=== PATIENT | female | born 1940 | race Caucasian/White ===

== ENCOUNTER 2017-11-25 11:30 | Outpatient (CLI) | payer MEDICARE, OTHER ==
--- NOTE | 2017-11-26 10:52 | Mammography Report ---
Reason: SCREENING MAMMO Procedure Date: 11/25/2017 Accession Number: [id number] / [id number] Procedure: MGN - Screening Mammo Dig Bilat CPT Code: FULL RESULT: EXAM: Screening Mammo Dig Bilat DATE: 11/25/2017 11:56 AM CLINICAL HISTORY: Routine screening TECHNIQUE: Bilateral CC and MLO views were obtained. COMPARISON: 06/08/2014, 11/01/2009, 11/18/2007 FINDINGS: There is extensive fatty replacement of the breast tissue. No significant interval change. No suspicious masses, clustered microcalcifications, or regions of architectural distortion are identified. IMPRESSION: Negative examination RECOMMENDATION: Routine annual screening unless otherwise clinically indicated. BIRADS CATEGORY 1: Negative STANDARD QUALIFYING STATEMENTS: 1. This examination was reviewed with the aid of Computer-Aided Detection (CAD). 2. A negative or benign imaging report should not delay biopsy if clinically suspicious findings are present. Consider surgical consultation if warrented. More than 5% of cancers are not identified by imaging. 3. Dense breasts may obscure an underlying neoplasm.
== END 2017-11-25 11:31 | disposition home or self-care (01) ==
LOC: DI.N 11:30
PROVIDERS: ATTEND Family Medicine
DX: Z12.31 Encounter for screening mammogram for malignant neoplasm of breast (principal)
CPT/HCPCS: 77067

== ENCOUNTER 2018-01-17 09:21 | Outpatient (CLI) | payer MEDICARE, OTHER ==
[2018-01-17] MEDS ORDERED: IOVERSOL 320 50 ML VIAL ONE (09:29)
--- NOTE | 2018-01-17 11:25 | CT Report ---
Reason: ABD PAIN Procedure Date: 01/17/2018 Accession Number: [id number] / [id number] Procedure: CT - Abdomen/Pelvis W/O CPT Code: FULL RESULT: EXAM: CT ABDOMEN AND PELVIS EXAM DATE: 01/17/2018 09:58 AM. CLINICAL HISTORY: Abdominal pain. COMPARISONS: None. TECHNIQUE: Routine helical CT imaging was performed through the abdomen and pelvis. IV contrast: None. Enteric contrast: No. Reconstructions: Coronal and sagittal. In accordance with CT protocol optimization, one or more of the following dose reduction techniques were utilized for this exam: automated exposure control, adjustment of mA and/or KV based on patient size, or use of iterative reconstructive technique. FINDINGS: Lung Bases: Unremarkable. Liver: Normal. No masses. Gallbladder/Bile Ducts: Status post cholecystectomy. Spleen: Normal. Pancreas: Partial fatty replacement. Adrenal Glands: Normal. Kidneys: Normal. No masses or hydronephrosis. Peritoneal Cavity/Bowel: The patient is status post Nicole-en-Y gastric bypass. No free fluid, free air or adenopathy. No masses or acute inflammatory process. The appendix is well visualized and normal. Pelvic Organs: The uterus appears enlarged, incompletely evaluated in the noncontrast CT. Vasculature: No aneurysms or other significant abnormality. Bones: No significant abnormality. Other: None. IMPRESSION: Enlarged uterus, greater than expected in the postmenopausal state. If clinically indicated, further evaluation by transvaginal and transabdominal pelvic ultrasound. RADIA
[2018-01-17] MEDS ORDERED: IOVERSOL 320 50 ML VIAL PO ONE (17:17)
== END 2018-01-17 09:22 | disposition home or self-care (01) ==
LOC: DI 09:21
PROVIDERS: ATTEND Physician Assistant
DX: N85.2 Hypertrophy of uterus (principal)
CPT/HCPCS: 74176

== ENCOUNTER 2018-01-21 10:31 | Emergency (ER) | payer MEDICARE, OTHER ==
--- NOTE | 2018-01-21 12:51 | ED Physician Documentation ---
PD HPI DYSPNEA - Stated complaint Stated Complaint: PELVIC PX - Chief complaint Chief Complaint: Abd Pain - History obtained from History obtained from: Patient PD PAST MEDICAL HISTORY - Allergies Allergies/Adverse Reactions: Allergies Allergy/AdvReac Type Severity Reaction Status Date / Time erythromycin base Allergy Emesis Verified 01/21/18 10:47 Penicillins Allergy Hives Verified 01/21/18 10:46 Tetracyclines Allergy Emesis Verified 01/21/18 10:47 Results - Vitals Vitals: Vital Signs - 24 hr 01/21/18 10:43 Temperature 36.0 C L Heart Rate 88 Respiratory 16 Rate Blood Pressure 145/101 H O2 Saturation 98 Oxygen O2 Source Room air
--- NOTE | 2018-01-21 12:52 | ED Physician Documentation ---
PD HPI ABD PAIN - Stated complaint Stated Complaint: PELVIC PX - Chief complaint Chief Complaint: Abd Pain - History obtained from History obtained from: Patient - History of Present Illness Timing - onset: How many weeks ago (2-3 weeks of lower abd pain. Seen last week and CT showing uterine mass. U/S suggested and is in referral. Having increased pelvic pain, some dysuria, some constipation. No vomiting nor fever. No vaginal bleeding.) Timing - duration: Weeks Timing - details: Gradual onset, Still present, Waxing and waning Quality: Cramping, Aching, Pain. No: Sharp, Fullness/distended Location: Suprapubic, LLQ Radiation: Lower back Improved by: No: Eating Worsened by: No: Eating Associated symptoms: Nausea, Constipation, Dysuria, Loss of appetite. No: Fever, Vomiting, Diarrhea, Melena, Hematochezia, Vaginal bleeding, Vaginal dc Similar symptoms before: Has not had sx before Recently seen: Emergency Dept Review of Systems Constitutional: denies: Fever, Chills, Myalgias Nose: denies: Rhinorrhea / runny nose, Congestion Throat: denies: Sore throat Respiratory: denies: Cough GI: reports: Abdominal Pain, Nausea, Constipation. denies: Vomiting, Diarrhea : reports: Dysuria. denies: Frequency, Discharge Skin: denies: Rash PD PAST MEDICAL HISTORY - Past Medical History Cardiovascular: None Respiratory: None MODEL BUILDER DISPLAY: None - Present Medications Home Medications: Ambulatory Orders Medication Instructions Recorded Confirmed Ciprofloxacin HCl [Cipro] 250 mg PO BID #14 tablet 01/21/18 Docusate Sodium 100 mg PO DAILY #30 capsule 01/21/18 Naproxen 375 mg PO BID #20 tablet 01/21/18 Tramadol HCl 50 mg PO Q6H PRN #15 tablet 01/21/18 - Allergies Allergies/Adverse Reactions: Allergies Allergy/AdvReac Type Severity Reaction Status Date / Time erythromycin base Allergy Emesis Verified 01/21/18 10:47 Penicillins Allergy Hives Verified 01/21/18 10:46 Tetracyclines Allergy Emesis Verified 01/21/18 10:47 PD ED PE NORMAL - Vitals Vital signs reviewed: Yes - General General: Alert and oriented X 3, Well developed/nourished - HEENT HEENT: Pharynx benign - Neck Neck: Supple, no meningeal sign, No adenopathy - Cardiac Cardiac: RRR, No murmur - Respiratory Respiratory: Clear bilaterally - Abdomen Abdomen: Normal bowel sounds, Soft, Non distended, No organomegaly, Other (some tender without guarding in suprapubic and LLQ area. ) - Female Female : Deferred - Rectal Rectal: Deferred - Back Back: No CVA TTP - Derm Derm: Normal color, Warm and dry - Extremities Extremities: No deformity, No tenderness to palpate, Normal ROM s pain, No edema, No calf tenderness / cord - Neuro Neuro: Alert and oriented X 3, No motor deficit, Normal speech Results - Vitals Vitals: Oxygen O2 Source Room air - Labs Labs: Microbiology 01/21/18 12:50 Urine Culture - Preliminary Urine,Clean Catch Escherichia Coli Laboratory Tests 01/21/18 01/21/18 01/21/18 12:50 12:55 12:55 WBC 7.9 RBC 5.68 H Hgb 16.0 Hct 47.5 H MCV 83.7 MCH 28.1 MCHC 33.6 RDW 15.5 H Plt Count 183 MPV 10.7 Neut # (Auto) 5.6 Lymph # (Auto) 1.5 Reagan # (Auto) 0.6 Eos # (Auto) 0.1 Baso # (Auto) 0.1 Absolute Nucleated RBC 0.01 Nucleated RBC % 0.1 Sodium 138 Potassium 4.4 Chloride 101 Carbon Dioxide 30 Anion Gap 7.0 BUN 17 Creatinine 0.8 Estimated GFR (MDRD) 69 L Glucose 122 H Calcium 9.3 Total Bilirubin 0.9 AST 20 ALT 13 Alkaline Phosphatase 111 Total Protein 7.9 Albumin 4.2 Globulin 3.7 Albumin/Globulin Ratio 1.1 Lipase 21 L Urine Color YELLOW Urine Clarity SL. CLOUDY Urine pH 5.5 Ur Specific [place] >=1.030 H Urine Protein 30 H Urine Glucose (UA) NEGATIVE Urine Ketones 15 H Urine Occult Blood LARGE H Urine Nitrite POSITIVE H Urine Bilirubin NEGATIVE Urine Urobilinogen 0.2 (NORMAL) Ur Leukocyte Esterase SMALL H Urine RBC 11-25 H Urine WBC >25 H Ur Squamous Epith Cells FEW Squamous Urine Bacteria Few Urine Mucus Few Strands Ur Microscopic Review INDICATED Urine Culture Comments INDICATED - Rads (name of study) pelvic U/S Radiology: Prelim report reviewed (large fibroid in uterus. No free fluid. ), See rad report PD MEDICAL DECISION MAKING - ED course Complexity details: reviewed old records (recent CT scan abd/pelvis showing uterine mass, with suggestion for U/S. ), reviewed results (U/S showing large fibroid. NO free fluid. This may be giving her pain due to the size. However does have UTI as well, so some symptoms from there. Has referral to Dr. Valera. ), considered differential, d/w patient Departure - Departure Disposition: 01 Home, Self Care Clinical Impression: Abdominal pain Qualifiers: Abdominal location: lower abdomen, unspecified Qualified Code(s): R10.30 - Lower abdominal pain, unspecified UTI (urinary tract infection) Qualifiers: Urinary tract infection type: acute cystitis Hematuria presence: without hematuria Qualified Code(s): N30.00 - Acute cystitis without hematuria Uterine fibroid Qualifiers: Uterine leiomyoma location: unspecified location Qualified Code(s): D25.9 - Leiomyoma of uterus, unspecified Condition: Stable Record reviewed to determine appropriate education?: Yes Instructions: ED Fibroids, ED UTI Cystitis Female Follow-Up: Roberto Aragon MD [Primary Care Provider] - [facility] [Provider Group] Prescriptions: Ciprofloxacin HCl [Cipro] 250 mg PO BID #14 tablet Docusate Sodium 100 mg PO DAILY #30 capsule Naproxen 375 mg PO BID #20 tablet Tramadol HCl 50 mg PO Q6H PRN #15 tablet PRN Reason: Pain Comments: The ultrasound report says that the mass of the uterus looks like a fibroid. It is still reasonable size of 7 x 9 cm so could be causing some pain just from the stretching of it. We can treat with some anti-inflammatories of naproxen twice daily with food. Take docusate stool softener daily to try to really prevent constipation. Add tramadol if needed for pains. You do have a urinary tract infection as well and will treat with Cipro twice daily for a week based on your allergies to other medicines. Follow-up with gynecology office at their earliest appointment. Discharge Date/Time: 01/21/18 16:11
[2018-01-21 12:56] LABS: GLUCOSE, URINE (UA) NEGATIVE (NEGATIVE); KETONES,URINE (UA) 15 mg/dL (NEGATIVE); LEUKOCYTE ESTERASE, URINE SMALL (NEGATIVE); NITRITE,URINE POSITIVE (NEGATIVE); OCCULT BLOOD,URINE LARGE (NEGATIVE); PH,URINE 5.5 PH (5.0-7.5); PROTEIN,URINE 30 mg/dL (NEGATIVE); UROBILINOGEN,URINE 0.2 (NORMAL) E.U./dL (NORMAL)
[2018-01-21 13:13] LABS: BILIRUBIN,URINE NEGATIVE (NEGATIVE); CLARITY,URINE SL. CLOUDY (CLEAR); ICTOTEST,URINE NEGATIVE
[2018-01-21 13:14] LABS: BACTERIA,URINE Few /HPF (None Seen); SQUAMOUS EPITHELIAL CELL,UR FEW Squamous (<= Few)
[2018-01-21 13:15] LABS: MUCUS,URINE Few Strands
[2018-01-21 13:17] LABS: BASOPHILS # (AUTO) 0.1 10^3/uL (0.0-0.1); BASOPHILS % (AUTO) 0.8 %; EOSINOPHILS # (AUTO) 0.1 10^3/uL (0.0-0.7); EOSINOPHILS % (AUTO) 1.4 %; LYMPHOCYTES # (AUTO) 1.5 10^3/uL (1.5-3.5); LYMPHOCYTES % (AUTO) 18.9 %; MEAN CORPUSCULAR HEMOGLOBIN 28.1 pg (27.0-31.0); MEAN CORPUSCULAR HGB CONC 33.6 g/dL (32.0-36.0); MEAN CORPUSCULAR VOLUME 83.7 fL (81.0-99.0); MEAN PLATELET VOLUME 10.7 fL (7.9-10.8); MONOCYTES # (AUTO) 0.6 10^3/uL (0.0-1.0); MONOCYTES % (AUTO) 7.7 %; NEUTROPHILS # (AUTO) 5.6 10^3/uL (1.5-6.6); NEUTROPHILS % (AUTO) 71.2 %; PLT - PLATELET COUNT 183 10^3/uL (130-450); RED BLOOD COUNT 5.68 10^6/uL (4.20-5.40); RED CELL DISTRIBUTION WIDTH 15.5 % (12.0-15.0); WHITE BLOOD COUNT 7.9 x10^3/uL (4.8-10.8)
[2018-01-21 13:20] LABS: ALBUMIN 4.2 g/dL (3.2-5.5); ALBUMIN/GLOBULIN RATIO 1.1 (1.0-2.2); BILIRUBIN,TOTAL 0.9 mg/dL (0.2-1.0); CALCIUM 9.3 mg/dL (8.5-10.3); CREATININE 0.8 mg/dL (0.4-1.0); TOTAL PROTEIN 7.9 g/dL (6.7-8.2)
[2018-01-21] MEDS ORDERED: SULFAMETH/TRIMETH DS 800/160 MG TABLET PO STA (13:23)
[2018-01-21] MEDS ORDERED: DOCUSATE SODIUM 100 MG CAPSULE PO STA (13:23)
[2018-01-21] MEDS ORDERED: NAPROXEN 250 MG TABLET PO STA (13:23)
--- NOTE | 2018-01-21 15:02 | Ultrasound Report ---
Reason: enlarged uterus on recent CT Procedure Date: 01/21/2018 Accession Number: [id number] / [id number] Procedure: US - Pelvic w/Transvaginal CPT Code: FULL RESULT: EXAM: PELVIC ULTRASOUND EXAM DATE: 01/21/2018 02:20 PM. CLINICAL HISTORY: Enlarged uterus on recent CT. COMPARISON: None. TECHNIQUE: Realtime transabdominal pelvic scan performed to identify the uterus and adnexa and as an overview of other pelvic structures, followed by transvaginal scan to provide greater detail of the uterus and adnexa, with static image documentation. FINDINGS: Uterus: 9.1 x 6.9 x 8.9 cm, volume 29 cc. Retroverted position. Heterogeneous parenchyma with a dominant mass as described below. Masses: There is a 7.1 x 5.7 x 9.1 cm posterior fundal mass, possibly fibroids. Endometrium: The endometrium is not seen likely due to mass effect. Cervix: Unremarkable. Right Ovary: 1.8 x 2.6 x 2.2 cm, volume 5.4 cc. Normal echotexture and blood flow. Left Ovary: 3.0 x 1.6 x 1.5 cm, volume 3.8 cc. Normal echotexture and blood flow. Free Fluid: None. Other: None. IMPRESSION: Dominant uterine mass as described, possibly a fibroid. RADIA
[2018-01-21 15:31] VITALS: BP 131/77
== END 2018-01-21 16:11 | disposition home or self-care (01) ==
LOC: ED 10:31
DX: R10.32 Left lower quadrant pain (principal); N30.00 Acute cystitis without hematuria; D25.9 Leiomyoma of uterus, unspecified
CPT/HCPCS: 36415; 76830; 76856; 80053; 81001; 83690; 85025; 87086; 87181; 99283; A9270; 81003

== ENCOUNTER 2018-02-01 08:34 | Outpatient (CLI) | payer MEDICARE, OTHER | END 2018-02-01 08:35 | disposition home or self-care (01) | LOC: LAB 08:34 | PROVIDERS: ATTEND Obstetrics & Gynecology | DX: D25.9 Leiomyoma of uterus, unspecified (principal); R01.1 Cardiac murmur, unspecified; R01.2 Other cardiac sounds | CPT/HCPCS: 93005 ==

== ENCOUNTER 2018-02-18 08:00 | Outpatient (CLI) | payer MEDICARE, OTHER | END 2018-02-18 23:59 | disposition home or self-care (01) | LOC: LAB.R 08:00 | PROVIDERS: ATTEND Obstetrics & Gynecology | DX: N76.2 Acute vulvitis (principal) | CPT/HCPCS: 87480; 87510; 87660 ==

== ENCOUNTER 2018-02-19 12:35 | Outpatient (CLI) | payer MEDICARE, OTHER | END 2018-02-19 12:36 | disposition home or self-care (01) | LOC: DI 12:35 | PROVIDERS: ATTEND Obstetrics & Gynecology | DX: R01.1 Cardiac murmur, unspecified (principal); I27.20 Pulmonary hypertension, unspecified; I51.7 Cardiomegaly | CPT/HCPCS: 93306 ==

== ENCOUNTER 2018-03-14 08:35 | Outpatient (CLI) | payer MEDICARE, OTHER ==
[2018-03-14 09:13] LABS: BASOPHILS # (AUTO) 0.1 10^3/uL (0.0-0.1); BASOPHILS % (AUTO) 1.2 %; EOSINOPHILS # (AUTO) 0.3 10^3/uL (0.0-0.7); EOSINOPHILS % (AUTO) 3.9 %; HGB - HEMOGLOBIN 13.3 g/dL (12.0-16.0); LYMPHOCYTES # (AUTO) 1.4 10^3/uL (1.5-3.5); LYMPHOCYTES % (AUTO) 21.2 %; MEAN CORPUSCULAR HEMOGLOBIN 27.7 pg (27.0-31.0); MEAN CORPUSCULAR HGB CONC 33.1 g/dL (32.0-36.0); MEAN CORPUSCULAR VOLUME 83.7 fL (81.0-99.0); MEAN PLATELET VOLUME 9.8 fL (7.9-10.8); MONOCYTES # (AUTO) 0.6 10^3/uL (0.0-1.0); MONOCYTES % (AUTO) 9.4 %; NEUTROPHILS # (AUTO) 4.3 10^3/uL (1.5-6.6); NEUTROPHILS % (AUTO) 64.3 %; PLT - PLATELET COUNT 161 10^3/uL (130-450); RED BLOOD COUNT 4.81 10^6/uL (4.20-5.40); RED CELL DISTRIBUTION WIDTH 16.4 % (12.0-15.0); WHITE BLOOD COUNT 6.7 x10^3/uL (4.8-10.8)
[2018-03-14 09:21] LABS: ALBUMIN 3.5 g/dL (3.2-5.5); BILIRUBIN,TOTAL 1.1 mg/dL (0.2-1.0); CALCIUM 8.7 mg/dL (8.5-10.3); CREATININE 0.7 mg/dL (0.4-1.0); TOTAL PROTEIN 6.9 g/dL (6.7-8.2)
== END 2018-03-14 08:36 | disposition home or self-care (01) ==
LOC: LAB 08:35
PROVIDERS: ATTEND Obstetrics & Gynecology
DX: Z01.812 Encounter for preprocedural laboratory examination (principal); D25.9 Leiomyoma of uterus, unspecified
CPT/HCPCS: 36415; 80053; 85025

== ENCOUNTER 2018-03-19 08:52 | Day surgery (SDC) | payer MEDICARE, OTHER ==
[2018-03-19] MEDS ORDERED: LACTATED RINGERS 1,000 ML IV ONE (09:13)
--- NOTE | 2018-03-19 10:11 | ANESTHESIA ---
Pre-Anesthesia VS, & Labs - Diagnosis uterine fibroids - Procedure hysteroscopy, myosure ablation, D& C Vital Signs: Temp Pulse Resp BP Pulse Ox 36.5 C 64 12 152/66 H 97 03/19/18 09:14 03/19/18 09:14 03/19/18 09:14 03/19/18 09:14 03/19/18 09:14 Height 5 ft 4 in Weight (kg) 99.5 kg Body Mass Index 37.5 - NPO >8 hours - Is Patient ?: Not Applicable Home Medications and Allergies Allergies/Adverse Reactions: Allergies Allergy/AdvReac Type Severity Reaction Status Date / Time erythromycin base Allergy Emesis Verified 01/21/18 10:47 Penicillins Allergy Hives Verified 01/21/18 10:46 Tetracyclines Allergy Emesis Verified 01/21/18 10:47 Anes History & Medical History - Anesthetic History Anesthesia Complications: reports: No previous complications, Slow wake-up - Medical History Cardiovascular: reports: Hypertension, Murmur, Other Pulmonary: reports: Shortness of breath, Sleep apnea (resolved with wt loss), Other Gastrointestinal: reports: Other Urinary: reports: None Neuro: reports: None Musculoskeletal: reports: Osteoarthritis, Chronic back pain Endocrine/Autoimmune: reports: None Blood Disorders: reports: None Skin: reports: Psoriasis Smoking Status: Former smoker - Surgical History General: Cholecystectomy, Gastric surgery, Colonoscopy Eyes Ears Nose Throat (EENT): Cataracts Orthopedic: Arthroscopic surgery Results - EKG Results EKG Comparison: Reviewed EKG (left bundle branch block) - Echo Results Echo Results: Report reviewed (preserved LV function, EF 65-70, mild MR, moderate pylmonary HTN) Exam General: Alert Dental: WNL Mouth Openin Fingerbreadth Mallampati classification: II Thyromental Distance: greater than 6 cm Respiratory: Lungs clear Cardiovascular: Regular rate, Normal S1, Normal S2, Other (3/4 systolic murmur) Plan Anesthesia Type: General Consent for Procedure(s) Verified and Reviewed: Yes Code Status: Attempt Resuscitation ASA classification: 2-Mild systemic disease Is this case an emergency?: No
[2018-03-19] MEDS ORDERED: ceFAZolin 2 GM/50 ML 2 GM/50 ML BAG IV ONE (11:25)
[2018-03-19] MEDS ORDERED: fentaNYL 100 MCG/2 ML VIAL IVP ONE (11:40)
[2018-03-19] MEDS ORDERED: KETOROLAC 30 MG/ML VIAL IVP ONE (11:40)
[2018-03-19] MEDS ORDERED: DEXAMETHASONE 4 MG/ML VIAL IVP ONE (11:40)
[2018-03-19] MEDS ORDERED: MIDAZOLAM 2 MG/2 ML VIAL IVP ONE (11:40)
[2018-03-19] MEDS ORDERED: LIDOCAINE-MPF 2% 5 ML VIAL IM ONE (11:40)
[2018-03-19] MEDS ORDERED: ONDANSETRON 4 MG/2 ML VIAL IVP ONE (11:40)
[2018-03-19] MEDS ORDERED: PROPOFOL 200 MG/20 ML VIAL IVP ONE (11:40)
[2018-03-19] MEDS ORDERED: LORazepam 2 MG/ML VIAL IVP PRN (13:16)
[2018-03-19] MEDS ORDERED: HYDROcod/ACETAM 10 MG/325 MG TABLET PO PRN (13:16)
[2018-03-19] MEDS ORDERED: ONDANSETRON 4 MG/2 ML VIAL IVP PRN (13:16)
[2018-03-19] MEDS ORDERED: oxyCODONE 5 MG TABLET PO PRN (13:16)
[2018-03-19] MEDS ORDERED: HYDROmorphone 0.5 MG/0.5 ML SYRINGE IVP PRN (13:16)
--- NOTE | 2018-03-19 13:22 | OPERATIVE REPORT ---
Operative Report - General Procedure Date: 03/19/18 Planned Procedure: hysterscopy with myosure Pre-Op Diagnosis: Post menopausel bleeding Procedure Performed: hysterscopy with myosure Post Op Diagnosis: same - Procedure Note Primary Surgeon: Angel Moreno MD Anesthesia Provider: Renetta Vazquez CRNA Anesthesia Technique: General LMA Pathology: Endonetrial currettings IV Fluids (mL): 900 Estimated Blood Loss (mL): 100 Complications: None Fluid deficit 670 ml - Other Other Information/Narrative: [id number]
[2018-03-19] MEDS ORDERED: fentaNYL 100 MCG/2 ML VIAL ONE (13:23)
[2018-03-19 14:24] VITALS: BP 123/90
--- NOTE | 2018-03-19 15:49 | OPERATIVE REPORT ---
DATE OF SERVICE: 03/19/2018 Physician: Angel Moreno MD PREOPERATIVE DIAGNOSES 1. Submucosal fibroid. 2. Postmenopausal bleeding. POSTOPERATIVE DIAGNOSES 1. Submucosal fibroid. 2. Postmenopausal bleeding. PROCEDURE: Hysteroscopy with MyoSure. SURGEON: Angel Moreno MD ANESTHESIA: General via LMA with Angela Vazquez CRNA IV FLUIDS: 900 mL. ESTIMATED BLOOD LOSS: 100 mL. MYOSURE DEFICIT: 640 mL of lactated Ringer's. FINDINGS: Upon entering the pelvic cavity, the uterus appeared to be high. It was small. The uteru s was sounded to roughly 10 cm. Upon entering the hysteroscope, there was evidence of what appeared to be a fibroid as well as very fluffy endometrial tissue. The MyoSure was used to resect as much of this as possible. Because of her heart condition, we decided to cease at a deficit of 700 mL to dec rease the risk of fluid overload. DESCRIPTION OF PROCEDURE: Following adequate general anesthesia via LMA, patient was placed in dorsa l lithotomy position in [facility]. At this point, she was prepped and draped in the usual fashi on. A timeout was performed in which the patient was identified as well as concerns addressed. A sp eculum was placed in the vagina. The cervix was visualized, grasped with a single-tooth tenaculum po steriorly. The cervix was then identified and then utilizing dilators was brought up to 6 mm. Uteru s was sounded to 10 cm. There was difficulty passing the hysteroscope, so at this point, the cervix was dilated up to 7 mm. The hysteroscope was passed without difficulty. The endometrial cavity was full of a lot of fluffy tissue, and it was very difficult to see a lot of anatomy. There appeared to be a fibroid. The MyoSure was then used to resect as much of the fluffy tissue as possible, as well as to try and resect the fibroid. When the deficit of 750 was reached, the procedure was terminated . The balance following ceasing eventually came to 670 mL. The procedure was stopped. The cervix w as released from the single-tooth tenaculum. Patient tolerated the procedure well and was taken to [facility] in stable condition. Sponge and needle counts were correct. TD: 03/19/2018 13:37
== END 2018-03-19 08:53 | disposition home or self-care (01) ==
LOC: SDS 08:52
PROVIDERS: ATTEND Obstetrics & Gynecology
PROC: 0UDB8ZX Extraction of Endometrium, Via Natural or Artificial Opening Endoscopic, Diagnostic (ICD-10-PCS; principal; 2018-03-19 10:30)
DX: C54.1 Malignant neoplasm of endometrium (principal); R01.1 Cardiac murmur, unspecified; I10 Essential (primary) hypertension; Z87.891 Personal history of nicotine dependence; I44.7 Left bundle-branch block, unspecified; I27.20 Pulmonary hypertension, unspecified
CPT/HCPCS: 58558; 88305; 88341; 88342; 88360; J0690; J7120

== ENCOUNTER 2018-04-14 13:55 | Outpatient (CLI) | payer MEDICARE, OTHER ==
[2018-04-14] MEDS ORDERED: IOVERSOL 320 100 ML VIAL IVP ONE ×2 (14:24→14:47)
[2018-04-14 14:25] LABS: CREATININE 0.8 mg/dL (0.4-1.0)
--- NOTE | 2018-04-14 15:24 | CT Report ---
Reason: ENDOMETRIAL CANCER, [id number] Procedure Date: 04/14/2018 Accession Number: [id number] / [id number] Procedure: CT - CHEST W CPT Code: FULL RESULT: EXAM: CT CHEST EXAM DATE: 04/14/2018 02:46 PM. CLINICAL HISTORY: Endometrial cancer. COMPARISONS: None. TECHNIQUE: Routine helical CT imaging was performed through the chest. IV contrast: None. Reconstructions: Coronal and sagittal. In accordance with CT protocol optimization, one or more of the following dose reduction techniques were utilized for this exam: automated exposure control, adjustment of mA and/or KV based on patient size, or use of iterative reconstructive technique. FINDINGS: Lungs/Pleura: 3.5 mm nodule in the left upper lobe image 19 series 4, 2 mm nodule left upper lobe image 23, 3 mm nodule left lower lobe image 30, 3 mm nodule right upper lobe image 15, 3.5 mm nodule left upper lobe image 15. No bronchial thickening, consolidation, or edema. Pulmonary vasculature is normal. No pericardial or pleural effusion. No pneumothorax. Mediastinum: Main pulmonary artery is enlarged, 3.2 cm. No mediastinal or hilar lymphadenopathy. Coronary calcifications are noted. Bones: Unremarkable. Visualized Abdomen: Status post cholecystectomy and partial gastrectomy. Other: None. IMPRESSION: A few pulmonary nodules measuring up to 3.5 mm as described. RADIA
== END 2018-04-14 13:56 | disposition home or self-care (01) ==
LOC: LAB 13:55 → DI 13:56
PROVIDERS: ATTEND Obstetrics & Gynecology
DX: C54.1 Malignant neoplasm of endometrium (principal); R91.8 Other nonspecific abnormal finding of lung field
CPT/HCPCS: 36415; 71260; 82565; 84520; Q9967

== ENCOUNTER 2018-07-22 09:02 | Outpatient (CLI) | payer MEDICARE, OTHER ==
[2018-07-22 14:41] LABS: ALBUMIN 3.5 g/dL (3.2-5.5); ALBUMIN/GLOBULIN RATIO 1.1 (1.0-2.2); BILIRUBIN,TOTAL 0.8 mg/dL (0.2-1.0); CALCIUM 8.8 mg/dL (8.5-10.3); CREATININE 0.6 mg/dL (0.4-1.0); TOTAL PROTEIN 6.8 g/dL (6.7-8.2)
[2018-07-22 14:48] LABS: BASOPHILS % (AUTO) 1.3 %; HGB - HEMOGLOBIN 11.6 g/dL (12.0-16.0); LYMPHOCYTES # (AUTO) 1.5 10^3/uL (1.5-3.5); LYMPHOCYTES % (AUTO) 41.3 %; MEAN CORPUSCULAR HGB CONC 33.4 g/dL (32.0-36.0); MEAN CORPUSCULAR VOLUME 80.7 fL (81.0-99.0); MEAN PLATELET VOLUME 9.4 fL (7.9-10.8); MONOCYTES # (AUTO) 0.6 10^3/uL (0.0-1.0); MONOCYTES % (AUTO) 16.6 %; NEUTROPHILS # (AUTO) 1.4 10^3/uL (1.5-6.6); NEUTROPHILS % (AUTO) 39.8 %; PLT - PLATELET COUNT 154 10^3/uL (130-450); RED BLOOD COUNT 4.28 10^6/uL (4.20-5.40); RED CELL DISTRIBUTION WIDTH 20.4 % (12.0-15.0); WHITE BLOOD COUNT 3.6 x10^3/uL (4.8-10.8)
[2018-07-22 15:14] LABS: PLATELET ESTIMATE, MANUAL NORMAL (130-450,000) (NORMAL); PLATELET MORPHOLOGY RARE GIANT PLATELETS (NORMAL)
== END 2018-07-22 09:03 | disposition home or self-care (01) ==
LOC: LAB.WCP 09:02
PROVIDERS: ATTEND Family Medicine
DX: C54.1 Malignant neoplasm of endometrium (principal)
CPT/HCPCS: 36415; 80053; 80061; 83721; 84443; 85025

== ENCOUNTER 2018-07-28 09:15 | Outpatient (CLI) | payer MEDICARE, OTHER ==
[2018-07-28 09:32] LABS: EOSINOPHILS # (AUTO) 0.1 10^3/uL (0.0-0.7); EOSINOPHILS % (AUTO) 2.3 %; LYMPHOCYTES # (AUTO) 1.1 10^3/uL (1.5-3.5); LYMPHOCYTES % (AUTO) 24.3 %; MEAN CORPUSCULAR HEMOGLOBIN 27.1 pg (27.0-31.0); MEAN CORPUSCULAR HGB CONC 33.1 g/dL (32.0-36.0); MONOCYTES # (AUTO) 0.2 10^3/uL (0.0-1.0); MONOCYTES % (AUTO) 3.4 %; NEUTROPHILS # (AUTO) 3.2 10^3/uL (1.5-6.6); PLT - PLATELET COUNT 95 10^3/uL (130-450); RED BLOOD COUNT 4.43 10^6/uL (4.20-5.40); RED CELL DISTRIBUTION WIDTH 22.3 % (12.0-15.0); WHITE BLOOD COUNT 4.7 x10^3/uL (4.8-10.8)
[2018-07-28 10:18] LABS: PLATELET ESTIMATE, MANUAL DECREASED (<130,000) (NORMAL); PLATELET MORPHOLOGY NORMAL APPEARANCE (NORMAL)
== END 2018-07-28 09:16 | disposition home or self-care (01) ==
LOC: LAB 09:15
PROVIDERS: ATTEND Internal Medicine Medical Oncology
DX: C55 Malignant neoplasm of uterus, part unspecified (principal)
CPT/HCPCS: 36415; 85025

== ENCOUNTER 2018-08-05 11:45 | Outpatient (CLI) | payer MEDICARE, OTHER ==
[2018-08-05 12:14] LABS: BASOPHILS % (AUTO) 0.9 %; EOSINOPHILS % (AUTO) 3.4 %; HGB - HEMOGLOBIN 10.8 g/dL (12.0-16.0); LYMPHOCYTES % (AUTO) 35.1 %; MEAN CORPUSCULAR HEMOGLOBIN 26.7 pg (27.0-31.0); MEAN CORPUSCULAR HGB CONC 31.6 g/dL (32.0-36.0); MEAN CORPUSCULAR VOLUME 84.7 fL (81.0-99.0); MEAN PLATELET VOLUME 11.6 fL (7.9-10.8); MONOCYTES % (AUTO) 4.1 %; NEUTROPHILS % (AUTO) 56.2 %; PLT - PLATELET COUNT 100 10^3/uL (130-450); RED BLOOD COUNT 4.04 10^6/uL (4.20-5.40); RED CELL DISTRIBUTION WIDTH 18.9 % (12.0-15.0); WHITE BLOOD COUNT 3.2 x10^3/uL (4.8-10.8)
[2018-08-05 12:47] LABS: ABNORMAL LYMPHS % (MANUAL) 0 %
[2018-08-05 12:52] LABS: BAND NEUTROPHILS % (MANUAL) 2 %; EOSINOPHILS # (MANUAL) 0.1 10^3/uL (0-0.7); LYMPHOCYTES # (MANUAL) 1.2 10^3/uL (1.5-3.5); LYMPHOCYTES % (MANUAL) 32 %; NEUTROPHILS # (MANUAL) 1.9 10^3/uL (1.5-6.6); NEUTROPHILS % (MANUAL) 58 %
[2018-08-05 12:53] LABS: PLATELET ESTIMATE, MANUAL DECREASED (<130,000) (NORMAL)
[2018-08-05 12:54] LABS: PLATELET MORPHOLOGY RARE GIANT PLATELETS (NORMAL)
[2018-08-05 12:56] LABS: DIFFERENTIAL COMMENT MANUAL DIFFERENTIAL
== END 2018-08-05 11:46 | disposition home or self-care (01) ==
LOC: LAB 11:45
PROVIDERS: ATTEND Internal Medicine Medical Oncology
DX: C55 Malignant neoplasm of uterus, part unspecified (principal)
CPT/HCPCS: 36415; 85025

== ENCOUNTER 2018-08-19 11:08 | Outpatient (CLI) | payer MEDICARE, OTHER ==
[2018-08-19 11:40] LABS: BASOPHILS % (AUTO) 0.6 %; EOSINOPHILS % (AUTO) 0.2 %; HGB - HEMOGLOBIN 9.9 g/dL (12.0-16.0); LYMPHOCYTES % (AUTO) 18.5 %; MEAN CORPUSCULAR HEMOGLOBIN 28.4 pg (27.0-31.0); MEAN CORPUSCULAR VOLUME 86.2 fL (81.0-99.0); MEAN PLATELET VOLUME 11.3 fL (7.9-10.8); MONOCYTES % (AUTO) 11.4 %; NEUTROPHILS % (AUTO) 67.6 %; PLT - PLATELET COUNT 153 10^3/uL (130-450); RED BLOOD COUNT 3.48 10^6/uL (4.20-5.40); RED CELL DISTRIBUTION WIDTH 21.2 % (12.0-15.0); WHITE BLOOD COUNT 4.8 x10^3/uL (4.8-10.8)
[2018-08-19 11:45] LABS: ABNORMAL LYMPHS % (MANUAL) 0 %
[2018-08-19 12:08] LABS: BAND NEUTROPHILS % (MANUAL) 3 %; LYMPHOCYTES # (MANUAL) 0.9 10^3/uL (1.5-3.5); LYMPHOCYTES % (MANUAL) 19 %; MONOCYTES # (MANUAL) 0.4 10^3/uL (0.0-1.0); NEUTROPHILS # (MANUAL) 3.5 10^3/uL (1.5-6.6); NEUTROPHILS % (MANUAL) 70 %
[2018-08-19 12:09] LABS: DIFFERENTIAL COMMENT MANUAL DIFFERENTIAL; PLATELET ESTIMATE, MANUAL NORMAL (130-450,000) (NORMAL); PLATELET MORPHOLOGY NORMAL APPEARANCE (NORMAL); RBC MORPHOLOGY (MULTIPLE) 1+ HYPOCHROMASIA (NORMAL)
== END 2018-08-19 11:09 | disposition home or self-care (01) ==
LOC: LAB 11:08
PROVIDERS: ATTEND Internal Medicine Medical Oncology
DX: C55 Malignant neoplasm of uterus, part unspecified (principal)
CPT/HCPCS: 36415; 80053; 85025

== ENCOUNTER 2018-08-20 10:33 | Outpatient (CLI) | payer MEDICARE, OTHER ==
[2018-08-20 11:20] LABS: ALBUMIN 3.4 g/dL (3.2-5.5); ALBUMIN/GLOBULIN RATIO 0.9 (1.0-2.2); BILIRUBIN,TOTAL 1.6 mg/dL (0.2-1.0); CREATININE 0.9 mg/dL (0.4-1.0); TOTAL PROTEIN 7.4 g/dL (6.7-8.2)
== END 2018-08-20 10:34 | disposition home or self-care (01) ==
LOC: LAB 10:33
PROVIDERS: ATTEND Internal Medicine Medical Oncology
DX: C55 Malignant neoplasm of uterus, part unspecified (principal)
CPT/HCPCS: 80053

== ENCOUNTER 2018-08-26 11:59 | Outpatient (CLI) | payer MEDICARE, OTHER ==
[2018-08-26 12:35] LABS: BASOPHILS % (AUTO) 0.9 %; EOSINOPHILS % (AUTO) 0.3 %; HGB - HEMOGLOBIN 9.1 g/dL (12.0-16.0); LYMPHOCYTES # (AUTO) 0.7 10^3/uL (1.5-3.5); LYMPHOCYTES % (AUTO) 20.9 %; MEAN CORPUSCULAR HEMOGLOBIN 27.7 pg (27.0-31.0); MEAN CORPUSCULAR HGB CONC 31.4 g/dL (32.0-36.0); MEAN CORPUSCULAR VOLUME 88.1 fL (81.0-99.0); MEAN PLATELET VOLUME 11.4 fL (7.9-10.8); MONOCYTES # (AUTO) 0.2 10^3/uL (0.0-1.0); MONOCYTES % (AUTO) 4.3 %; NEUTROPHILS # (AUTO) 2.6 10^3/uL (1.5-6.6); NEUTROPHILS % (AUTO) 72.7 %; PLT - PLATELET COUNT 158 10^3/uL (130-450); RED BLOOD COUNT 3.29 10^6/uL (4.20-5.40); RED CELL DISTRIBUTION WIDTH 20.9 % (12.0-15.0); WHITE BLOOD COUNT 3.5 x10^3/uL (4.8-10.8)
[2018-08-26 12:45] LABS: ALBUMIN 3.6 g/dL (3.2-5.5); ALBUMIN/GLOBULIN RATIO 0.9 (1.0-2.2); BILIRUBIN,TOTAL 1.1 mg/dL (0.2-1.0); CALCIUM 9.1 mg/dL (8.5-10.3); CREATININE 0.8 mg/dL (0.4-1.0); TOTAL PROTEIN 7.5 g/dL (6.7-8.2)
[2018-08-26 12:50] LABS: % IRON SATURATION 47 % (20-50); IRON 108 ug/dL (28-170); TOTAL IRON BINDING CAPACITY 231 ug/dL (250-450); TRANSFERRIN 165 mg/dL (192-382)
[2018-08-26 13:25] LABS: THYROID STIMULATING HORMONE 1.86 uIU/mL (0.34-5.60)
== END 2018-08-26 12:00 | disposition home or self-care (01) ==
LOC: LAB 11:59
PROVIDERS: ATTEND Nurse Practitioner
DX: C54.1 Malignant neoplasm of endometrium (principal); C55 Malignant neoplasm of uterus, part unspecified
CPT/HCPCS: 36415; 80053; 82607; 82728; 83540; 84443; 84466; 85025

== ENCOUNTER 2018-09-01 09:27 | Outpatient (CLI) | payer MEDICARE, OTHER ==
[2018-09-01 10:10] LABS: BASOPHILS % (AUTO) 0.5 %; EOSINOPHILS % (AUTO) 0.5 %; HGB - HEMOGLOBIN 8.6 g/dL (12.0-16.0); LYMPHOCYTES % (AUTO) 34.7 %; MEAN CORPUSCULAR HEMOGLOBIN 27.8 pg (27.0-31.0); MEAN CORPUSCULAR HGB CONC 31.2 g/dL (32.0-36.0); MEAN CORPUSCULAR VOLUME 89.3 fL (81.0-99.0); MEAN PLATELET VOLUME 11.8 fL (7.9-10.8); NEUTROPHILS % (AUTO) 58.3 %; PLT - PLATELET COUNT 186 10^3/uL (130-450); RED BLOOD COUNT 3.09 10^6/uL (4.20-5.40); RED CELL DISTRIBUTION WIDTH 20.4 % (12.0-15.0)
[2018-09-01 10:28] LABS: ABNORMAL LYMPHS % (MANUAL) 0 %
[2018-09-01 11:24] LABS: BAND NEUTROPHILS % (MANUAL) 4 %; LYMPHOCYTES # (MANUAL) 0.6 10^3/uL (1.5-3.5); LYMPHOCYTES % (MANUAL) 32 %; MONOCYTES # (MANUAL) 0.1 10^3/uL (0.0-1.0)
[2018-09-01 11:28] LABS: DIFFERENTIAL COMMENT MANUAL DIFFERENTIAL; PLATELET ESTIMATE, MANUAL NORMAL (130-450,000) (NORMAL); PLATELET MORPHOLOGY NORMAL APPEARANCE (NORMAL)
== END 2018-09-01 09:28 | disposition home or self-care (01) ==
LOC: LAB 09:27
PROVIDERS: ATTEND Family Medicine
DX: C55 Malignant neoplasm of uterus, part unspecified (principal)
CPT/HCPCS: 36415; 85025

== ENCOUNTER 2018-09-06 10:36 | Outpatient (CLI) | payer MEDICARE, OTHER ==
--- NOTE | 2018-09-06 18:48 | HISTORY & PHYSICAL EXAMINATION ---
Chief Complaint - Chief Complaint Chief Complaint: Weakness and urinary frequency/burning History of Present Illness - Admitted From Admitted From:: Home - History Obtained From Records Reviewed: Yes History obtained from: Patient and her neice Millie who is at bedside - History of Present Illness HPI Comment/Other: Ms. 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 Her last chemotherapy was given on 08/28/18. Over this past week she has become progresively weaker, febrile, decreased PO intake, and urinary burning and frequency with very little, dark colored urine. On Saturday she became so weak that she moved into her sister's home so she could get help with ADLs. Other PMH reported in chronic back & joint pains (bilat knees) and a heart murmur found at time of cancer diagnosis. History - Past Medical History Cardiovascular: reports: Hypertension, Atrial fibrillation (New onset this admission), Murmur, Other Respiratory: reports: Shortness of breath, Sleep apnea (resolved with wt loss), Other Neuro: reports: None Endocrine/Autoimmune: reports: None, Type 2 diabetes (diet controlled since weight loss ) GI: reports: Chronic constipation, Other RADIOGRAPHIC TECHNOLOGIST: reports: None : reports: None HEENT: reports: Other (cataracts-bilat) Psych: reports: Claustrophobia Musculoskeletal: reports: Osteoarthritis, Chronic back pain Derm: reports: Psoriasis MRSA Hx?: No - Past Surgical History General: reports: Cholecystectomy, Gastric surgery (bypass), Colonoscopy Ortho: reports: Arthroscopic surgery /RADIOGRAPHIC TECHNOLOGIST: reports: Dilation and currettage, Hysterectomy HEENT: reports: Cataracts - Family & Social History Family History: Sister: Alive and Well (hx of sarcoma), Brother: (2 brothers . 1 of suicide. 1 of bladder ca) Living arrangement: At home Living Situation: Alone Social History Notes: She has recently (Saturday), temporarily moved in with her twin sister and brother and law on [facility]. Typically lives alone with her dog. - Substance History Use: Uses substance without health or social issues: NONE, Tobacco (previous use. quit in 1984.) Tobacco Details: Cigarettes - POLST Patient has POLST: No Meds/Allgy - Home Medications Home Medications: Ambulatory Orders Medication Instructions Recorded Confirmed Naproxen 375 mg PO BID #20 tablet 01/21/18 03/19/18 Tramadol HCl 50 mg PO Q6H PRN #15 tablet 01/21/18 03/19/18 - Allergies Allergies/Adverse Reactions: Allergies Allergy/AdvReac Type Severity Reaction Status Date / Time erythromycin base Allergy Emesis Verified 01/21/18 10:47 Penicillins Allergy Hives Verified 01/21/18 10:46 Tetracyclines Allergy Emesis Verified 01/21/18 10:47 Review of Systems - Constitutional Constitutional: reports: Fatigue, Fever, Malaise, Weakness, Poor appetite, Weight loss (weight has dropped ~60lb weight loss in 6 months) - Eyes Eyes: reports: Other (burning, dry eyes) - Ears, Nose & Throat Ears, Nose & Throat: reports: Other (dental implants; dysgusia) - Cardiovascular Cariovascular: reports: Edema ( 1-2+ BLE), Lightheadedness, Exertional dyspnea, Decr. exercise tolerance, Other (told she has a murmur by her PCP around the time of CA cliveois) - Respiratory Respiratory: reports: SOB with exertion. denies: Cough, Hemoptysis - Gastrointestinal Gastrointestinal: reports: Constipation, Poor appetite. denies: Rectal bleeding, Black stools, Bloody stools, Nausea, Vomiting, Arnulfo blood emesis, Coffee grounds emesis - Genitourinary Genitourinary: reports: Dysuria, Frequency, Urgency. denies: Hematuria, Flank pain - Musculoskeletal Musculoskeletal: reports: Muscle pain, Back pain, Muscle aches, Muscle weakness, Joint pain (bilat knees) - Integumentary Integumentary: reports: Rash (notes new rash to buttucks), Other (alopecia) - Neurological Neurological: reports: General weakness, Dizziness, Numbness (peripheral neuropathy with numb/tingling to bilat feet up to mid shins, and bilat hands in fingertips) - Psychiatric Psychiatric: reports: Depression, Anxiety. denies: Suicidal, Hallucinations - Endocrine Endocrine: reports: Intolerance to cold - Hematologic/Lymphatic Hematologic/Lymphatic: reports: Anemia, Bruising, Petechiae, Lymphadenopathy. denies: Recurrent infections - All Other Systems All Other Systems: reports: Reviewed and negative Prior Level of Functionality: Has ambulated with a cane for years, recently started using a 4WW. Lives alone with her dog. Recently became unable to perform ADLs [place] Exam - Vital Signs Reviewed Vital Signs: Yes - Physical Exam General Appearance: positive: No acute distress, Alert, Other (Very pale, appears fatigued, obese woman) Eyes Bilateral: positive: PERRL, EOMI, No lid inflammation, Other (mild scleral jaundice) ENT: positive: Dry mucous membranes Neck: positive: Nml inspection, Thyroid nml, No JVD, Trachea midline, Stiff neck Respiratory: positive: Chest non-tender, No respiratory distress, Breath sounds nml Cardiovascular: positive: Tachycardia, Systolic murmur Peripheral Pulses: positive: 1+ Abdomen: positive: Non-tender, Nml bowel sounds, No distention. negative: Tenderness, Guarding, Rebound Back: positive: Nml inspection. negative: CVA tenderness (R), CVA tenderness (L) Skin: positive: Pallor, Other (Pale, cool,). negative: Warm Extremities: positive: Non-tender, Nml appearance, Pedal edema (LE edema up to knees 1-2+), Joint swelling. negative: Calf tenderness, Natalee's sign/cords Neurologic/Psychiatric: positive: Oriented x3, CN's nml (2-12), Motor nml, Mood/affect nml, Weakness, Sensory loss (numbness bilat LE feet up to mid may). negative: Sensation nml Conclusion/Plan - Problem List (1) Anemia Conclusion/Plan: Hemoglobin 7.1 Hematocrit 22. Patient is 8 days post most recent chemotherapy infusion. Plan: -Type and screen -2u RBCs ordered -Premed with benadryl and tylenol Patient and family member have been educated on risks and benefits of blood transfusion, and patient is understanding and agreeable Qualifiers: Anemia type: unspecified type Qualified Code(s): D64.9 - Anemia, unspecified (2) Atrial fibrillation with rapid ventricular response Conclusion/Plan: New onset with HR in 110s. Previous EKG in medical record shows abnormal p waves, but no afib. Plan: -Monitor on telemetry overnight -Given risk factors, will order a CTa to rule out PE (PERC criteria indicates low risk, though there is concern given her active cancer) -Order TSH to rule out hyperthryoid -Trend troponins (initial troponin on admission <0.04) (3) UTI (urinary tract infection) Conclusion/Plan: UA+ for blood, nitrates, leuks, RBC, WBC and bacteria Received 750mg levofloxacin in ED Plan: -Will continue PO Levofloxacin 750mg daily starting tomorrow -Can order pyridium PRN for dysuria Qualifiers: Urinary tract infection type: site unspecified Hematuria presence: without hematuria Qualified Code(s): N39.0 - Urinary tract infection, site not specified (4) DANIAL (acute kidney injury) Conclusion/Plan: Baseline Cr 1.0, mildly up to 1.2 Plan: -Rehydrate with NS, stop fluids when PRBCs arrive as to not fluid overload (5) Orthostatic dizziness Conclusion/Plan: Unable to get up OOB even with assistance due to weakness and dizziness. Has now received 2L fluids in ED. Plan: -Check orthostatics on arrival to floor -Continue IV hydration per above - Lab Results Lab results reviewed: Yes - Diagnostic Imaging Results Diagnostic Imaging Results: positive: See rad report Diagnostic Imaging Results Comments: CXR on admission with no acute findings. PAC with tip appropriately placed in SVC - EKG Results EKG Interpreted Independently: Yes EKG Comparison: Changed from prior EKG (Afib is new from previous EKG, but LBBB was on previous) EKG Findings: Atrial fibrillation with a HR and a LBBB Core Measures - Anticipated LOS I expect patient to be DC'd or transferred within 96 hours.: Yes - DVT/VTE - Prophylaxis VTE/DVT Device ordered at admit?: Yes VTE/DVT Prophylaxis med ordered at admit?: No Not Ordered - Medical Reason: Contraindicated
== END 2018-09-06 10:37 | disposition critical access hospital (66) ==
LOC: EMS 10:36
PROVIDERS: ATTEND Surgery
DX: R53.1 Weakness (principal); R39.9 Unspecified symptoms and signs involving the genitourinary system
CPT/HCPCS: A0425; A0427

== ENCOUNTER 2018-09-06 10:49 | Observation (INO) | payer MEDICARE, OTHER ==
--- NOTE | 2018-09-06 11:41 | ED Physician Documentation ---
History of Present Illness - Stated complaint Stated Complaint: WEAK - Chief complaint Chief Complaint: General - History obtained from History obtained from: Patient, Family - Additonal information Additional information: Patient is a 77-year-old female with history of metastatic uterine cancer status post hysterectomy and currently undergoing chemotherapy with last therapy on 08/29/2018 presenting with generalized weakness, decreased urination. Patient was supposed to receive additional chemotherapy 2 days ago, which was held as she was too dehydrated and instead received a liter and a half of normal saline. Patient denies fever, chest pain, shortness of breath, productive cough. Patient also denies abdominal pain and last bowel movement yesterday. Patient does have chronic leg swelling which is unchanged from baseline. Patient denies any complications with port. No other improving or worsening factors noted. Review of Systems Constitutional: denies: Fever Cardiac: denies: Chest pain / pressure, Palpitations Respiratory: denies: Dyspnea, Cough GI: denies: Abdominal Pain, Nausea, Vomiting, Diarrhea : reports: Dysuria, Unable to Void Neurologic: reports: Generalized weakness PD PAST MEDICAL HISTORY - Past Medical History Past Medical History: Yes Cardiovascular: Hypertension, Murmur, Other Respiratory: Shortness of breath, Sleep apnea (resolved with wt loss), Other Neuro: None Endocrine/Autoimmune: None GI: Other PRINCIPAL SECURITY ARCHITECT: None : None HEENT: Other Psych: Claustrophobia Musculoskeletal: Osteoarthritis, Chronic back pain Derm: Psoriasis - Past Surgical History Past Surgical History: Yes General: Cholecystectomy, Gastric surgery, Colonoscopy Ortho: Arthroscopic surgery /PRINCIPAL SECURITY ARCHITECT: Hysterectomy HEENT: Cataracts - Present Medications Home Medications: Ambulatory Orders Medication Instructions Recorded Confirmed Naproxen 375 mg PO BID #20 tablet 01/21/18 03/19/18 Tramadol HCl 50 mg PO Q6H PRN #15 tablet 01/21/18 03/19/18 - Allergies Allergies/Adverse Reactions: Allergies Allergy/AdvReac Type Severity Reaction Status Date / Time erythromycin base Allergy Emesis Verified 01/21/18 10:47 Penicillins Allergy Hives Verified 01/21/18 10:46 Tetracyclines Allergy Emesis Verified 01/21/18 10:47 - Social History Does the pt smoke?: No Smoking Status: Former smoker Does the pt drink ETOH?: No Does the pt have substance abuse?: No - Immunizations Immunizations are current?: Yes - POLST Patient has POLST: No PD ED PE NORMAL - Vitals Vital signs reviewed: Yes - General General: Alert and oriented X 3, No acute distress. No: Well developed/nourished (Frail, chronically ill-appearing) - HEENT HEENT: Atraumatic, Moist mucous membranes, Pharynx benign - Neck Neck: Supple, no meningeal sign - Cardiac Cardiac: RRR. No: No murmur (Faint holosystolic murmur (chronic)) - Respiratory Respiratory: No respiratory distress, Clear bilaterally - Abdomen Abdomen: Normal bowel sounds, Soft, Non tender, Non distended - Derm Derm: Normal color, Warm and dry, No rash, Other (Port in place over right chest, otherwise uncomplicated.) - Extremities Extremities: No deformity, No tenderness to palpate. No: No edema (Trace nonpitting pedal edema bilaterally (chronic)) - Neuro Neuro: Alert and oriented X 3, No motor deficit, No sensory deficit - Psych Psych: Normal mood, Normal affect Results - Vitals Vitals: Vital Signs - 24 hr 09/06/18 09/06/18 09/06/18 11:00 11:45 11:47 Temperature 37.1 C 36.0 C L Heart Rate 114 H 104 H 112 H Respiratory 20 14 17 Rate Blood Pressure 130/60 133/64 H 123/53 L O2 Saturation 98 97 97 09/06/18 09/06/18 09/06/18 12:37 12:56 15:00 Temperature Heart Rate 112 H 109 H 105 H Respiratory 25 H 17 21 Rate Blood Pressure 126/65 126/65 109/45 L O2 Saturation 99 95 100 09/06/18 16:25 Temperature Heart Rate 105 H Respiratory 17 Rate Blood Pressure 128/74 O2 Saturation 99 Oxygen O2 Source Room air - EKG (time done) 1204 Rate: Rate (enter#) (110) Rhythm: Atrial fibrillation Intervals: LBBB Compare to prior EKG: Other (Reviewed all the EKG which indicated left bundle branch block and additional strips on chart that also showed signs of atrial fibrillation) 1315 Rate: Rate (enter#) (106) Rhythm: Atrial fibrillation Intervals: LBBB - Labs Labs: Laboratory Tests 09/06/18 09/06/18 09/06/18 11:55 12:14 12:14 WBC 5.3 RBC 2.50 L Hgb 7.1 L Hct 22.2 L MCV 88.8 MCH 28.4 MCHC 32.0 RDW 20.4 H Plt Count 117 L MPV 11.8 H Neut # (Auto) 4.2 Lymph # (Auto) 0.4 L [place] # (Auto) 0.7 Eos # (Auto) 0.0 Baso # (Auto) 0.0 Absolute Nucleated RBC 0.00 Nucleated RBC % 0.0 PT 15.3 H INR 1.4 H APTT 20.2 L Sodium Potassium Chloride Carbon Dioxide Anion Gap BUN Creatinine Estimated GFR (MDRD) Glucose Lactic Acid Calcium Total Bilirubin AST ALT Alkaline Phosphatase Troponin I B-Natriuretic Peptide Total Protein Albumin Globulin Albumin/Globulin Ratio Lipase Urine Color YELLOW Urine Clarity CLOUDY Urine pH 6.0 Ur Specific [place] 1.015 Urine Protein 100 H Urine Glucose (UA) NEGATIVE Urine Ketones NEGATIVE Urine Occult Blood MODERATE H Urine Nitrite POSITIVE H Urine Bilirubin NEGATIVE Urine Urobilinogen 0.2 (NORMAL) Ur Leukocyte Esterase MODERATE H Urine RBC 6-10 H Urine WBC >25 H Urine WBC Clumps PRESENT Ur Squamous Epith Cells FEW Squamous Urine Bacteria Moderate H Urine Mucus Few Strands Ur Microscopic Review INDICATED Urine Culture Comments INDICATED 09/06/18 09/06/18 09/06/18 12:14 12:14 12:14 WBC RBC Hgb Hct MCV MCH MCHC RDW Plt Count MPV Neut # (Auto) Lymph # (Auto) [place] # (Auto) Eos # (Auto) Baso # (Auto) Absolute Nucleated RBC Nucleated RBC % PT INR APTT Sodium 132 L Potassium 4.2 Chloride 95 L Carbon Dioxide 26 Anion Gap 11.0 BUN 27 H Creatinine 1.2 H Estimated GFR (MDRD) 43 L Glucose 134 H Lactic Acid Calcium 8.2 L Total Bilirubin 1.5 H AST 18 ALT 12 Alkaline Phosphatase 77 Troponin I < 0.04 B-Natriuretic Peptide 208 H Total Protein 6.7 Albumin 2.4 L Globulin 4.3 H Albumin/Globulin Ratio 0.6 L Lipase 13 L Urine Color Urine Clarity Urine pH Ur Specific [place] Urine Protein Urine Glucose (UA) Urine Ketones Urine Occult Blood Urine Nitrite Urine Bilirubin Urine Urobilinogen Ur Leukocyte Esterase Urine RBC Urine WBC Urine WBC Clumps Ur Squamous Epith Cells Urine Bacteria Urine Mucus Ur Microscopic Review Urine Culture Comments 09/06/18 12:14 WBC RBC Hgb Hct MCV MCH MCHC RDW Plt Count MPV Neut # (Auto) Lymph # (Auto) [place] # (Auto) Eos # (Auto) Baso # (Auto) Absolute Nucleated RBC Nucleated RBC % PT INR APTT Sodium Potassium Chloride Carbon Dioxide Anion Gap BUN Creatinine Estimated GFR (MDRD) Glucose Lactic Acid 1.4 Calcium Total Bilirubin AST ALT Alkaline Phosphatase Troponin I B-Natriuretic Peptide Total Protein Albumin Globulin Albumin/Globulin Ratio Lipase Urine Color Urine Clarity Urine pH Ur Specific [place] Urine Protein Urine Glucose (UA) Urine Ketones Urine Occult Blood Urine Nitrite Urine Bilirubin Urine Urobilinogen Ur Leukocyte Esterase Urine RBC Urine WBC Urine WBC Clumps Ur Squamous Epith Cells Urine Bacteria Urine Mucus Ur Microscopic Review Urine Culture Comments PD MEDICAL DECISION MAKING - ED course Complexity details: reviewed old records, reviewed results, re-evaluated patient, considered differential, d/w patient, d/w family, d/w j2ee consultant ED course: Patient presenting with multiple complaints including generalized fatigue and urinary symptoms raising concerns for infection was specifically UTI given patient's immunocompromised status. Work-up did not find evidence of pneumonia, bacteremia, neutropenic fever. Patient is not currently exhibiting signs of sepsis or other hemodynamic instability. Urinalysis reflected infection and started on antibiotic regimen while continuing to provide fluid support. Additionally, EKG noted to have changes of atrial fibrillation with mild RVR and left bundle branch block and upon chart review, these changes appear to be chronic. Gave small dose of diltiazem which did decrease rate, although did not normalize completely. Cardiac markers within normal limits and do not have high suspicion for ACS, MT, unstable angina, aneurysm, dissection at this time. Patient's persistent slightly elevated rate could also be related to underlying infection. Other labs did return abnormal but are likely reflective of her chronic underlying disease processes including a decreased H&H. Upon chart review, patient's H&H has declined consistently for some time and after speaking with patient and family, oncology has already discussed possible blood transfusion with patient. At this time, patient does not want blood transfusion and is comfortable with discharge home on oral antibiotics. Spoke with on-call oncology who is also amenable to this plan. However, patient is unable to successfully sit up or ambulate on her own and is now not comfortable with the discharge plan. As patient will likely require hospitalization at this [facility], she now is amenable to blood transfusion and type and screen and blood ordered, specifically irradiated, given immunosuppression status. Spoke with hospitalist, who is agreeable to admission. Departure - Departure Disposition: ED Place in Observation Clinical Impression: Anemia Qualifiers: Anemia type: unspecified type Qualified Code(s): D64.9 - Anemia, unspecified Urinary tract infection Qualifiers: Urinary tract infection type: site unspecified Hematuria presence: without hematuria Qualified Code(s): N39.0 - Urinary tract infection, site not specified Condition: Fair
[2018-09-06] MEDS ORDERED: SODIUM CHLORIDE 0.9% 1,000 ML IV ONE (11:50)
[2018-09-06] MEDS ORDERED: diltiaZEM INJ 5 MG/ML VIAL IVP STA (12:13)
[2018-09-06 12:23] LABS: BASOPHILS % (AUTO) 0.4 %; HGB - HEMOGLOBIN 7.1 g/dL (12.0-16.0); LYMPHOCYTES # (AUTO) 0.4 10^3/uL (1.5-3.5); LYMPHOCYTES % (AUTO) 7.5 %; MEAN CORPUSCULAR HEMOGLOBIN 28.4 pg (27.0-31.0); MEAN CORPUSCULAR VOLUME 88.8 fL (81.0-99.0); MEAN PLATELET VOLUME 11.8 fL (7.9-10.8); MONOCYTES # (AUTO) 0.7 10^3/uL (0.0-1.0); MONOCYTES % (AUTO) 12.3 %; NEUTROPHILS # (AUTO) 4.2 10^3/uL (1.5-6.6); NEUTROPHILS % (AUTO) 78.3 %; PLT - PLATELET COUNT 117 10^3/uL (130-450); RED CELL DISTRIBUTION WIDTH 20.4 % (12.0-15.0); WHITE BLOOD COUNT 5.3 x10^3/uL (4.8-10.8)
[2018-09-06 12:27] LABS: INR 1.4 (0.8-1.2); PT - PROTHROMBIN TIME 15.3 secs (9.9-12.6)
[2018-09-06 12:34] LABS: PARTIAL THROMBOPLASTIN TIME 20.2 secs (24.9-33.3)
[2018-09-06 12:38] LABS: ALBUMIN 2.4 g/dL (3.2-5.5); ALBUMIN/GLOBULIN RATIO 0.6 (1.0-2.2); BILIRUBIN,TOTAL 1.5 mg/dL (0.2-1.0); CALCIUM 8.2 mg/dL (8.5-10.3); CREATININE 1.2 mg/dL (0.4-1.0); TOTAL PROTEIN 6.7 g/dL (6.7-8.2)
[2018-09-06 12:42] LABS: BILIRUBIN,URINE NEGATIVE (NEGATIVE); GLUCOSE, URINE (UA) NEGATIVE (NEGATIVE); KETONES,URINE (UA) NEGATIVE (NEGATIVE); LEUKOCYTE ESTERASE, URINE MODERATE (NEGATIVE); NITRITE,URINE POSITIVE (NEGATIVE); OCCULT BLOOD,URINE MODERATE (NEGATIVE); PROTEIN,URINE 100 mg/dL (NEGATIVE); UROBILINOGEN,URINE 0.2 (NORMAL) E.U./dL (NORMAL)
[2018-09-06 12:44] LABS: CLARITY,URINE CLOUDY (CLEAR)
[2018-09-06 12:56] LABS: BACTERIA,URINE Moderate /HPF (None Seen); MUCUS,URINE Few Strands; SQUAMOUS EPITHELIAL CELL,UR FEW Squamous (<= Few); WBC CLUMPS,URINE PRESENT
--- NOTE | 2018-09-06 13:02 | XRAY Report ---
Reason: cough Procedure Date: 09/06/2018 Accession Number: [id number] / [id number] Procedure: XR - Chest 2 View X-Ray CPT Code: 21681 FULL RESULT: EXAM: CHEST RADIOGRAPHY EXAM DATE: 09/06/2018 12:27 PM. CLINICAL HISTORY: History of ovarian cancer, cough. COMPARISON: CHEST 2 VIEW 03/18/2018 11:49 AM. TECHNIQUE: 2 views. FINDINGS: Lungs/Pleura: Lung volumes are somewhat diminished. No focal opacities, vascular congestion or edema evident. Mediastinum: Heart and mediastinal contours are unremarkable. Other: A Port-A-Cath is new overlying the right chest and terminates in the low SVC just above the cavoatrial junction. IMPRESSION: 1. No acute cardiopulmonary disease. 2. Low lung volumes as before. 3. New Port-A-Cath terminates in lower SVC. RADIA
[2018-09-06] MEDS ORDERED: levoFLOXacin 750 MG/150 ML 750 MG/150 ML BAG IV STA (13:08)
[2018-09-06] MEDS ORDERED: ZINC OXIDE 20% OINT 28.35 GM TUBE TOP STA (14:48)
[2018-09-06] MEDS ORDERED: ONDANSETRON ODT 4 MG TABLET TL PRN (17:30)
[2018-09-06] MEDS ORDERED: ONDANSETRON 4 MG/2 ML VIAL IVP PRN (17:30)
[2018-09-06] MEDS ORDERED: SODIUM CHLORIDE FLUSH 0.9% 10 ML SYRINGE IVP PRN (17:30)
[2018-09-06] MEDS ORDERED: oxyCODONE 5 MG TABLET PO PRN (17:30)
[2018-09-06] MEDS ORDERED: ACETAMINOPHEN 325 MG TABLET PO ONE (17:32)
[2018-09-06] MEDS ORDERED: traMADol 50 MG TABLET PO PRN (17:34)
[2018-09-06] MEDS ORDERED: SODIUM CHLORIDE 0.9% 1,000 ML IV SCH (18:00)
--- NOTE | 2018-09-06 18:23 | HISTORY & PHYSICAL EXAMINATION ---
Chief Complaint - Chief Complaint Chief Complaint: weakness, dizziness and dribbling urine History of Present Illness - Admitted From Admitted From:: Home/ER - History Obtained [facility] History obtained from: Patient, [employer] and ER MD Exam Limitations: none - History of Present Illness HPI Comment/Other: She is a anais 77-year-old female who presented with abdominal pain January 30. Diagnosed as gastritis. 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 IIIb 03/2018. 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 She has been having chemotherapy since April 2018 with carbo-taxol. Switched to Alb-bound paclitaxel bc of infusion reaction. No radiation therapy offered. Will need colonscopy down the road. Last chemotherapy August 29. She has been having increasing weakness, increasing fatigue and lightheadedness. Boaz like she had a fever. Denies cough, wheezing, hemoptysis. Chronic stable leg edema, no chest pain. But she is having dribbling, and decreased urine output and urgency. She was supposed to have chemotherapy September 04 but it was held because of dehydration. She is due to have it next week. She came to the emergency room with these complaints and has a temperature of 36. Pulse is consistently tachycardic at 104-114. Blood pressure is 130/60. She is 99% saturated on room air. She is a very pale, fatigued female with cold hands and feet. No respiratory distress. Evaluation by the emergency room to MD shows her to have an anemia of 7.1. Grams of hemoglobin. She has been gr adually decreasing her hemoglobin due to the chemotherapy. Transfusion was considered a week or so ago but she did not have enough symptoms to warrant transfusion at that time. She does not have an elevated white cell count. She is mildly hyponatremic, and has an elevated creatinine of 1.2. Lowest baseline is 0.6. Urinalysis has occult blood, nitrates, leukocyte Estrace, pyuria, and very few squamous cells. She is also has a UTI. She also has a new afib in the ER. History - Past Medical History Cardiovascular: reports: Hypertension, Murmur (Echo 02/2018 w mild conc LVH w EF 65%. LAE mild. Mild sclerotic AV. Mod pulm HTN PASP 51 mm Hg), Other (varicose veins and chronic leg edema) Respiratory: reports: Shortness of breath, Sleep apnea (resolved with wt loss), Other Neuro: reports: Peripheral neuropathy, Other (history of zoster) Endocrine/Autoimmune: reports: Type 2 diabetes (in the past before gastric surgery), Other (morbid obesity treated w gastric bypass 2004, 200 lb wt loss) GI: reports: Hepatitis (A age 20.), Other MARKETING AND OUTREACH COORDINATOR: reports: Uterine cancer (leiomyosarcoma since 04/2018), Other () : reports: None HEENT: reports: Other Psych: reports: Claustrophobia Musculoskeletal: reports: Osteoarthritis, Chronic back pain Derm: reports: Psoriasis MRSA Hx?: No - Past Surgical History General: reports: Cholecystectomy (1987), Gastric surgery, Colonoscopy Ortho: reports: Arthroscopic surgery (of her knees) /MARKETING AND OUTREACH COORDINATOR: reports: Hysterectomy HEENT: reports: Cataracts - Family & Social History Family History Comment/Other: Father age 73 of lung cancer, had alcoholism. mom age 87 of heart disease, high cholesterol. Of her siblings one brother of bladder cancer age 83, another brother committed suicide age 35, her twin sister has breast cancer and has high cholesterol, as well as sarcoma too. No children Living arrangement: At home Living Situation: With family Social History Notes: She is from the [facility] in the [facility]. She came to [facility] 10 years ago to be close to her sister and family. Although she was living in [place] at that time, she had no family on the [facility] and family convinced her to move here to [place]. Smoked for 35 years and quit 1984. No hx of alcohol abuse. No hx of recreational substance abuse. She just moved in with her sister and PARTHA last week for help. - POLST Patient has POLST: No POLST Status: Full Code Meds/Allgy - Home Medications Home Medications: Ambulatory Orders Medication Instructions Recorded Confirmed Naproxen 375 mg PO BID #20 tablet 01/21/18 03/19/18 Tramadol HCl 50 mg PO Q6H PRN #15 tablet 01/21/18 03/19/18 - Allergies Allergies/Adverse Reactions: Allergies Allergy/AdvReac Type Severity Reaction Status Date / Time erythromycin base Allergy Emesis Verified 01/21/18 10:47 Penicillins Allergy Hives Verified 01/21/18 10:46 Tetracyclines Allergy Emesis Verified 01/21/18 10:47 Review of Systems - Constitutional Constitutional: reports: Fatigue, Fever, Malaise, Weight loss - Eyes Eyes: reports: Blurred vision, Other (dry eyes w burning) - Ears, Nose & Throat Ears, Nose & Throat: reports: Other (bad tasting food) - Cardiovascular Cariovascular: reports: Palpitations (with exertion), Lightheadedness, Exertiona l dyspnea, Decr. exercise tolerance - Respiratory Respiratory: reports: SOB with exertion. denies: Cough, Sputum production, Wheezing, Hemoptysis, Orthopnea - Gastrointestinal Gastrointestinal: reports: Diarrhea, Nausea, Poor appetite. denies: Black stools, Bloody stools - Genitourinary Genitourinary: reports: Dysuria, Frequency, Urgency - Musculoskeletal Musculoskeletal: reports: Muscle pain, Muscle aches - Integumentary Integumentary: reports: Rash (on her buttocks from this week.) - Neurological Neurological: reports: General weakness, Dizziness, Numbness (hands and feet) - Psychiatric Psychiatric: reports: Anxiety. denies: Depression, Suicidal - Endocrine Endocrine: denies: Polyuria, Polydypsia, Polyphagia - Hematologic/Lymphatic Hematologic/Lymphatic: reports: Anemia, Bruising, Petechiae Prior Level of Functionality: she was able to cope with her chemo until this last few weeks. Can't live alone now so moved in w sister. Needs help to get food. Can still ambulate w cane and barely shower, but is exhausted. Exam - Vital Signs Reviewed Vital Signs: Yes Vital Signs: Vital Signs x48h Temp Pulse Resp BP Pulse Ox 09/06/18 17:40 105 H 18 126/57 L 98 09/06/18 16:25 105 H 17 128/74 99 09/06/18 15:00 105 H 21 109/45 L 100 09/06/18 12:56 109 H 17 126/65 95 09/06/18 12:37 112 H 25 H 126/65 99 09/06/18 11:47 112 H 17 123/53 L 97 09/06/18 11:45 36.0 C L 104 H 14 133/64 H 97 09/06/18 11:00 37.1 C 114 H 20 130/60 98 - Physical Exam General Appearance: positive: Alert, Mild distress, Other (pale, cold skin white female with sister at bedside) Eyes Bilateral: positive: PERRL, EOMI ENT: positive: Dry mucous membranes Neck: positive: No JVD. negative: Stiff neck, Carotid bruit Respiratory: positive: Chest non-tender. negative: Wheezes, Rales, Rhonchi Cardiovascular: positive: Irregularly irregular, Systolic murmur. negative: Gallop/S4, Friction rub Peripheral Pulses: positive: 0 Abdomen: positive: Non-tender, No organomegaly, Nml bowel sounds, No distention Skin: positive: Dry, Pallor, Other (cold) Extremities: positive: Non-tender, Pedal edema Neurologic/Psychiatric: positive: Oriented x3, CN's nml (2-12), Motor nml, Weakness Conclusion/Plan - Problem List (1) Orthostatic dizziness Conclusion/Plan: And fatigue. Most likely from severe anemia, dehydration. In her blood work hemoglobin is low since been at 7.1. She has acute kidney injury from her baseline creatinine. Plan: Observation admit Hydration and blood transfusion Repeat labs in the morning (2) Anemia associated with chemotherapy Conclusion/Plan: Ongoing since her first chemotherapy. Getting gradually worse. Recognize in her oncology office visit notes. Plan: 2 units of packed cells Premedicate Hemoglobin in the morning (3) UTI (urinary tract infection) Conclusion/Plan: Received IV antibiotics in the emergency room. Will get p.o. antibiotics in the morning in anticipation of discharge. Will adjust medication on the basis of her culture. Qualifiers: Urinary tract infection type: acute cystitis (4) Atrial fibrillation with rapid ventricular response Conclusion/Plan: Differential diagnosis includes hypothyroidism, myocardial ischemia, pulmonary embolism. A prechemotherapy echocardiogram showed only mild left atrial enlargement. Intact left ventricle. No significant valvular heart disease. Plan: Serial troponins Check TSH Check CT pulmonary angiogram (5) DANIAL (acute kidney injury) Conclusion/Plan: from dehydration. Hydrate and repeat labs in the morning. - Lab Results Lab results reviewed: Yes Fish Bones: 09/06/18 12:14 09/06/18 12:14 - EKG Results EKG Interpreted Independently: No EKG Comparison: No prior EKG Core Measures - Anticipated LOS I expect patient to be DC'd or transferred within 96 hours.: Yes - DVT/VTE - Prophylaxis VTE/DVT Device ordered at admit?: Yes
[2018-09-06] MEDS ORDERED: IOVERSOL 320 100 ML VIAL IVP ONE ×2 (19:45→20:17)
--- NOTE | 2018-09-06 20:54 | CT Report ---
Reason: new onset afib in pt w gyne cancer Procedure Date: 09/06/2018 Accession Number: [id number] / [id number] Procedure: CT - ANGIO CHEST W/WO CPT Code: FULL RESULT: EXAM: CT ANGIOGRAM CHEST. EXAM DATE: 09/06/2018 08:15 PM. CLINICAL HISTORY: New onset atrial fibrillation in patient with gynecologic cancer. COMPARISON: CHEST W/ 04/14/2018 2:41 PM. TECHNIQUE: Routine helical imaging was performed through the chest in the pulmonary arterial phase. IV Contrast: OPTI-320 80 mL. Reconstructions: Coronal 3-D MIP reconstructions.Sagittal and coronal. In accordance with CT protocol optimization, one or more of the following dose reduction techniques were utilized for this exam: automated exposure control, adjustment of mA and/or KV based on patient size, or use of iterative reconstructive technique. FINDINGS: Pulmonary Arteries: Diagnostic quality: Adequate through the segmental arteries. No evidence for acute or chronic pulmonary emboli. RV/LV is within normal limits. There is no interventricular septal bowing. There is no reflux of contrast material in the IVC. Lungs/Pleura: No acute airspace consolidation. Previously seen 2-3 mm nodular opacities are either stable or less conspicuous compared to the previous exam. There is slightly increased attenuation throughout the upper lobes. No pleural effusion or pneumothorax. Mediastinum: Normal. No cardiac enlargement or adenopathy. Thoracic Aorta: Unremarkable. Upper Abdomen: Status post gastric bypass. Other: None. IMPRESSION: 1. No pulmonary embolism. 2. Subtle, nonspecific bilateral upper lobe opacities may be secondary to mild fluid shift. 3. Previously seen 2-3 mm nodular opacities are stable or less conspicuous on reexamination. No new nodules. RADIA
[2018-09-06] MEDS: ACETAMINOPHEN 325 MG TABLET PO PRN (21:01)
[2018-09-06] MEDS ORDERED: SODIUM CHLORIDE 0.9% 500 ML ONE (22:27)
[2018-09-06] MEDS ORDERED: cefTRIAXone 1 GM in SODIUM CHLORIDE 0.9% MINIBAG 100 ML IV SCH (22:53)
[2018-09-07] MEDS: SODIUM CHLORIDE FLUSH 0.9% 10 ML SYRINGE IVP SCH ×3 (00:06→17:56)
[2018-09-07] MEDS: AZTREONAM 1 GM in SODIUM CHLORIDE 0.9% MINIBAG 100 ML IV SCH ×3 (00:06→21:34)
[2018-09-07 07:08] LABS: BASOPHILS % (AUTO) 0.7 %; HGB - HEMOGLOBIN 10.9 g/dL (12.0-16.0); LYMPHOCYTES # (AUTO) 0.6 10^3/uL (1.5-3.5); LYMPHOCYTES % (AUTO) 11.3 %; MEAN CORPUSCULAR HEMOGLOBIN 28.5 pg (27.0-31.0); MEAN CORPUSCULAR HGB CONC 33.5 g/dL (32.0-36.0); MEAN CORPUSCULAR VOLUME 85.1 fL (81.0-99.0); MEAN PLATELET VOLUME 12.1 fL (7.9-10.8); MONOCYTES # (AUTO) 0.6 10^3/uL (0.0-1.0); MONOCYTES % (AUTO) 11.1 %; NEUTROPHILS # (AUTO) 4.2 10^3/uL (1.5-6.6); NEUTROPHILS % (AUTO) 75.1 %; PLT - PLATELET COUNT 84 10^3/uL (130-450); RED BLOOD COUNT 3.82 10^6/uL (4.20-5.40); RED CELL DISTRIBUTION WIDTH 19.1 % (12.0-15.0); WHITE BLOOD COUNT 5.6 x10^3/uL (4.8-10.8)
[2018-09-07 07:36] LABS: PLATELET ESTIMATE, MANUAL DECREASED (<130,000) (NORMAL); PLATELET MORPHOLOGY 1+ LARGE PLATELETS (NORMAL)
--- NOTE | 2018-09-07 07:38 | Discharge Plan ---
Discharge Plan Problem Reviewed?: Yes Disposition: Home, Self Care Condition: Fair Prescriptions: Metoprolol Tartrate [Lopressor] 12.5 mg PO BID #30 tablet Sulfamethoxazole/Trimethoprim [Bactrim 400-80 mg Tablet] 1 each PO BID #10 tablet Diet: Regular Activity Restrictions: Activity as Tolerated Shower Restrictions: No Driving Restrictions: No Health Concerns: You came to our emergency room because of weakness and fatigue. 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 We found you to have 3 problems. One was anemia was 7.1 g of hemoglobin. The other one was a urinary tract infection. The anemia is from chemotherapy induced suppression of your bone marrow.Your anemia and probable dehydration caused your kidneys to have mild kidney insufficiency. A third problem was new onset atrial fibrillation. Since this irregular heart beat is associated with a venous blood clot to the lungs, we did an angiogram to the veins that go to your heart and lungs and you did not have a pulmonary embolus. Plan of Treatment: You received 2 units of packed red cells that were irradiated. You also were started on antibiotics for the urinary tract infection. When someone has atrial fibrillation, it can increase the risk of having a stroke. The usual protocol is to start a patient on medicines that slow down the heart rate as well as give blood thinners to reduce the risk of stroke. I spoke to the oncologist on-call for your group. They do not recommend blood thinners since you are getting chemotherapy and the chemotherapy already lowers your platelets. Platelets stop bleeding. So if you have low platelets and you take a blood thinner, your risk of bleeding is too high. Care Goals: Please follow-up with your oncologist. Make sure you stay hydrated with drinking at least a liter of water a day. Complete your antibiotic therapy. Have your primary care provider reviewed the culture results of the urinary tract infections. Because you are currently having chemotherapy, we did not want to give you blood thinners for the new onset atrial fibrillation. We have given you medicine to slow it down. Please discuss with your oncologist and your primary care provider. Have your primary care provider refer you to a [employer] [facility] in the [facility]. Assessment: Patient and sister understand the care plan and will follow through. No Smoking: If you smoke, Please STOP! Call for help. Follow-up with: JARAD LEZAMA MD [Primary Care Provider] -
[2018-09-07 08:43] LABS: CALCIUM 8.1 mg/dL (8.5-10.3); CREATININE 1.1 mg/dL (0.4-1.0)
[2018-09-07] MEDS ORDERED: levoFLOXacin 250 MG TABLET PO SCH (09:00)
[2018-09-07] MEDS: POLYETHYLENE GLYCOL 3350 17 GM PACKET PO SCH (09:15)
--- NOTE | 2018-09-07 09:16 | DISCHARGE SUMMARY ---
"<Jordan Florez - Last Filed: 09/08/18 08:07> Discharge Summary Admit Date: 09/06/18 Discharge Date: 09/08/18 Discharging Provider: Dr. Kitty Erickson MD Primary Care Provider: Dr. Minor Code Status: Attempt Resuscitation Condition at Discharge: Fair Discharge Disposition: 03 SNF DC/Xfer - DIAGNOSES Admission Diagnoses: (1) Orthostatic dizziness (2) Anemia associated with chemotherapy (3) UTI (urinary tract infection) (4) Atrial fibrillation with rapid ventricular response (5) DANIAL (acute kidney injury) Discharge Diagnoses with Status of Each Condition: (1) Orthostatic dizziness Likely in setting of severe dehydration and anemia. Rehydrated with ~4L NS total. Transfused 2u PRBCs. Orthostatic VS this am were stable from supine to sitting, but she in unable to stand, wouldn't attempt out of fear. (2) Anemia associated with chemotherapy Transfused 2u PRBCs. H&H stablized at 10.9 & 32.5. (3) UTI (urinary tract infection) Treated with 1 dose IV levoflaxacin in ED. Transitioned to IV aztreonam due to FQ resistance on previous cultures. Discharged with PO bactrim. (4) Atrial fibrillation with rapid ventricular response TSH 0.84. Troponins negative. CTa: negative for PE. So acute hyperthyroid, acute MN, and PE effectively ruled out. AM tele shows sinus tachycardia. Likely pt has a paroxysmal Afib, bradley. with pt report of occasional sensation of heart fluttering. Started low dose metoprolol for rate control. PCP to follow-up with this as outpt. (5) DANIAL (acute kidney injury) In setting of dehydration. Crea on admit 1.2, slightly improved to 1.1 today. - HPI History of Present Illness: Ms. 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 She has been having chemotherapy since April 2018 with carbo-t axol. Switched to Alb-bound paclitaxel due to infusion reaction. Last chemotherapy administered on August 29, was scheduled to received next dose earlier this week but it was held due to severe dehydration and she was given 1.5L fluids instead, and rescheduled for this coming week. She has been having increasing weakness, increasing fatigue and lightheadedness. [place] like she had a fever. Denies cough, wheezing, hemoptysis. Chronic stable leg edema, no chest pain. She is also having dribbling, dysuria, decreased urine output and urgency. She came to the emergency room with these complaints and had a temperature of 36, though reportedly had taken tylenol a few hours prior. Pulse is con sistently tachycardic at 104-114. Blood pressure is 130/60. She is 99% saturated on room air. She is a very pale, fatigued female with cold hands and feet. No respiratory distress. Labs on presentation to ED shows her to be anemic with a Hgb of 7.1, Hct of 22. This has been a steady decline since her last chemo administration. Transfusion was considered a week or so ago but she did not have enough symptoms to warrant transfusion at that time. She does not have an elevated white cell count. She is mildly hyponatremic, and has an elevated creatinine of 1.2. Lowest baseline is 0.6. Urinalysis has occult blood, nitrates, leukocyte Estrace, pyuria, and very few squamous cells. She was started on Abx for this UTI. She was also found to have a new Afib in the ER. - CONSULTS | PROCEDURES Procedures: EKG on admit: Afib with RVR rate 110-120s Telemetry overnight: Sinus tachy at 0800 09/07 CT pulmonary angiogram: IMPRESSION: 1. No pulmonary embolism. 2. Subtle, nonspecific bilateral upper lobe opacities may be secondary to mild fluid shift. 3. Previously seen 2-3 mm nodular opacities are stable or less conspicuous on reexamination. No new nodules. - HOSPITAL COURSE Hospital Course: Ms. Angeles was admitted overnight for observation and to be transfused. She received 2u of PRBCs without signs of transfusion reaction. Her H&H has stabilized at 10 and 32 post transfusions. Her VS have remained stable with a mild, transient tachycardia in low 100s. She was monitored on telemetry overnight and review of tele strip at 0800 this am shows a sinus tachycardic rhythm, rate 100-110. Orthostatic VS were observed this AM, after transfusion of RBCs and patient was unable to stand out of fear/anxiety. Supine to sitting BPs and HR were unchanged however. She was given breakfast this AM, but she co ntinues to have poor appetite and dysgusia as side effect of her chemotherapy. Care conference held with her sister, [id number], and 2 nieces on 09/07 to discuss discharge planning. Family wishes for Grace to DC to a facility where she can continue to work on her strength and stamina with assistance prior to returning home where her family can continue to assist her. This morning she is awake, alert, eating toast for breakfast. She feels better today after getting a better night's sleep. Chronic pain in back is mild but controlled, no nausea. - ALLERGIES Allergies/Adverse Reactions: Allergies Allergy/AdvReac Type Severity Reaction Status Date / Time erythromycin base Allergy Emesis Verified 01/21/18 10:47 Penicillins Allergy Hives Verified 01/21/18 10:46 Tetracyclines Allergy Emesis Verified 01/21/18 10:47 - MEDICATIONS Home Medications: Ambulatory Orders Medication Instructions Recorded Confirmed Metoprolol Tartrate [Lopressor] 12.5 mg PO BID #30 tablet 09/07/18 Sulfamethoxazole/Trimethoprim 1 each PO BID #10 tablet 09/07/18 [Bactrim 400-80 mg Tablet] - PHYSICAL EXAM AT DISCHARGE General Appearance: positive: Alert, Other (This is an obese women, she has more color to her skin than on admit, still somewhat pale ) Eyes Bilateral: positive: Normal inspection, PERRL, EOMI, No lid inflammation, Conjunctivae nml, No scleral icterus ENT: positive: No signs of dehydration Neck: positive: Nml inspection, No JVD Respiratory: positive: Chest non-tender, No respiratory distress, Breath sounds nml Cardiovascular: positive: Regular rate & rhythm, Systolic murmur, Other (Sinus rhythm) Abdomen: positive: Non-tender, No organomegaly, Nml bowel sounds, No distention. negative: Tenderness, Guarding, Rebound Back: positive: Nml inspection. negative: CVA tenderness (R), CVA tenderness (L) Skin: positive: Warm, Dry, Pallor, Other (small .5cm stage II pressure ulcer to R ischial tuberosity, surrounding skin is mildly erythematous, blanchable. .25cm slightly less severe stage II pressure ulcer to L ischial tuberosity. Both present on admission. ) Extremities: positive: Non-tender, Full ROM, Nml appearance, Pedal edema, Other (chronic BLE edema up to thighs 1+). negative: Calf tenderness, Natalee's sign/cords Neurologic/Psychiatric: positive: Oriented x3, CN's nml (2-12), Motor nml, Weakness, Sensory loss, Other (slightly depressed mood, anxious ) - LABS Result Diagrams: 09/07/18 06:56 09/07/18 08:10 - DIAGNOSTIC IMAGING Diagnostic Imaging Results: Final report reviewed Diagnostic Imaging Results Comments: CTa: IMPRESSION: 1. No pulmonary embolism. 2. Subtle, nonspecific bilateral upper lobe opacities may be secondary to mild fluid shift. 3. Previously seen 2-3 mm nodular opacities are stable or less conspicuous on reexamination. No new nodules. - FOLLOW UP Follow Up: Dr. Minor PCP and Primary oncologist at [facility] <Kitty Erickson - Last Filed: 09/08/18 15:00> Discharge Summary - DIAGNOSES Discharge Diagnoses with Status of Each Condition: Final culture for her UTI is Klebsiella sensitive to Bactrim. - PHYSICAL EXAM AT DISCHARGE Physical Exam Other/Comments: Fatigued appearing elderly female with diffuse alopecia, soto appearance, still with slightly dry oral mucosa, and orthostatic dizziness when she stands. By today she is able to stand to wash her hands. Yesterday she could not even stand. Neck is shotty adenopathy Lungs have diminished breath sounds at the bases but are essentially clear without crackles rhonchi wheezing Irregular rate and rhythm, controlled, systolic ejection murmur Abdomen is soft, generalized achiness but no tenderness, hypoactive bowel sounds, and generalized nodularity Mild pedal edema of both legs from chronic venous stasis - LABS Result Diagrams: 09/08/18 07:55 09/07/18 08:10"
[2018-09-07] MEDS: SODIUM CHLORIDE 0.9% 1,000 ML IV SCH ×2 (11:01→16:17)
[2018-09-07] MEDS ORDERED: BISACODYL 10 MG SUPP PR ONE (11:03)
--- NOTE | 2018-09-07 13:09 | PROVIDER PROGRESS NOTE ---
<Jordan Florez - Last Filed: 09/07/18 13:43> Subjective - Prog Note Date Prog Note Date: 09/07/18 Prog Note Time: 13:09 - Subjective Pt reports feeling: No change (Patient had bad night's sleep due to receiving blood products overnight, requiring more freguent nursing checks. She is still very fatigued and little appetite and feeling very weak.) Current Medications - Current Medications Current Medications: Active Medications Generic Name Dose Route Start Last Admin Trade Name Freq PRN Reason Stop Dose Admin Acetaminophen 650 mg 09/06/18 17:30 09/06/18 21:01 Tylenol PO 650 mg Q4HR PRN Administration Pain 1 to 4 Diphenhydramine HCl 25 mg 09/07/18 22:00 Benadryl PO 09/07/18 22:01 ONCE ONE Aztreonam 1 gm/ Sodium 100 mls @ 200 mls/hr 09/06/18 23:00 09/07/18 09:40 Chloride IV Infused BID ANNIE Infusion Sodium Chloride 1,000 mls @ 250 mls/hr 09/07/18 10:53 09/07/18 11:01 Normal Saline 0.9% IV 250 mls/hr .Q4H ANNIE Administration Ondansetron HCl 4 mg 09/06/18 17:30 Zofran Inj IVP Q6HR PRN Nausea / Vomiting Ondansetron HCl 4 mg 09/06/18 17:30 Zofran Odt TL Q6HR PRN Nausea / Vomiting Oxycodone HCl 5 mg 09/06/18 17:30 Roxicodone PO Q4HR PRN Pain 5 to 7 Polyethylene Glycol 17 gm 09/07/18 09:00 09/07/18 09:15 Miralax PO 17 gm DAILY ANNIE Administration Sodium Chloride 10 ml 09/06/18 17:30 Normal Saline Flush 0.9% IVP PRN PRN NEEDED PER PROVIDER ORDERS Sodium Chloride 10 ml 09/07/18 01:00 09/07/18 00:06 Normal Saline Flush 0.9% IVP 10 ml 0100,0900,1700 ANNIE Administration Tramadol HCl 50 mg 09/06/18 17:34 Ultram PO Q6H PRN PAIN Allergies erythromycin base Allergy (Verified 01/21/18 10:47) Emesis Penicillins Allergy (Verified 01/21/18 10:46) Hives Tetracyclines Allergy (Verified 01/21/18 10:47) Emesis Objective - Vital Signs/Intake & Output Reviewed Vital Signs: Yes Vital Signs: Vital Signs x48h Temp Pulse Pulse Pulse Pulse Resp BP 09/07/18 11:29 37.3 C 99 19 09/07/18 09:43 122 H 09/07/18 09:00 110 H 09/07/18 08:26 37.6 C H 101 H 16 09/07/18 05:50 36.7 C 92 20 115/48 L BP BP BP Pulse Ox 09/07/18 11:29 103/46 L 94 09/07/18 09:43 106/46 L 09/07/18 09:00 101/45 L 09/07/18 08:26 115/47 L 95 09/07/18 05:50 Intake & Output: Intake & Output 09/04/18 09/05/18 09/06/18 09/07/18 23:59 23:59 23:59 23:59 Intake Total 1473.0 1477 Balance 1473.0 1477 - Objective General Appearance: positive: No acute distress, Alert, Other (Pale, fatigued appearing woman, looks stated age) Eyes Bilateral: positive: Normal inspection, PERRL, EOMI, No lid inflammation, Conjunctivae nml, No scleral icterus ENT: positive: No signs of dehydration Neck: positive: Nml inspection, No JVD Respiratory: positive: Chest non-tender, No respiratory distress, Breath sounds nml Cardiovascular: positive: Regular rate & rhythm, Tachycardia, Systolic murmur. negative: JVD present Peripheral Pulses: 1+ Dorsalis pedis (R), 1+ Dorsalis pedis (L), 2+ Radial (R), 2+ Radial (L) Abdomen: positive: Non-tender, No organomegaly, Nml bowel sounds, No distention. negative: Tenderness, Guarding, Rebound Skin: positive: Warm, Dry, Pallor, Other (x2 stage II PU to ischial tuberosities. R>L) Extremities: positive: Non-tender, Nml appearance, Pedal edema, Other (Chronic BLE edema up to thighs 1+). negative: Calf tenderness Neurologic/Psychiatric: positive: Oriented x3, CN's nml (2-12), Motor nml, Mood/affect nml, Weakness, Sensory loss - Lab Results Fish Bones: 09/07/18 06:56 09/07/18 08:10 Other Labs: Lab Results x24hrs 09/07/18 09/07/18 09/07/18 Range/Units 08:10 06:56 06:56 WBC 5.6 (4.8-10.8) x10^3/uL RBC 3.82 L (4.20-5.40) 10^6/uL Hgb 10.9 L (12.0-16.0) g/dL Hct 32.5 L (37.0-47.0) % MCV 85.1 (81.0-99.0) fL MCH 28.5 (27.0-31.0) pg MCHC 33.5 (32.0-36.0) g/dL RDW 19.1 H (12.0-15.0) % Plt Count 84 L (130-450) 10^3/uL MPV 12.1 H (7.9-10.8) fL Neut # (Auto) 4.2 (1.5-6.6) 10^3/uL Lymph # (Auto) 0.6 L (1.5-3.5) 10^3/uL [place] # (Auto) 0.6 (0.0-1.0) 10^3/uL Eos # (Auto) 0.0 (0.0-0.7) 10^3/uL Baso # (Auto) 0.0 (0.0-0.1) 10^3/uL Absolute Nucleated RBC 0.00 x10^3/uL Nucleated RBC % 0.0 /100WBC Manual Slide Review Indicated WBC Morphology TOXIC VACUOLATION (NORMAL) Platelet Estimate DECREASED (<130,000) (NORMAL) Platelet Morphology 1+ LARGE PLATELETS (NORMAL) RBC Morph Micro Appear OVALOCYTES (NORMAL) Sodium 132 L (135-145) mmol/L Potassium 3.9 (3.5-5.0) mmol/L Chloride 96 L (101-111) mmol/L Carbon Dioxide 24 (21-32) mmol/L Anion Gap 12.0 (6-13) BUN 21 H (6-20) mg/dL Creatinine 1.1 H (0.4-1.0) mg/dL Estimated GFR (MDRD) 48 L (>89) Glucose 113 H (70-100) mg/dL Calcium 8.1 L (8.5-10.3) mg/dL B-Natriuretic Peptide (5-100) pg/mL TSH 0.83 (0.34-5.60) uIU/mL Blood Type Blood Type Recheck Antibody Screen Crossmatch IS Only 09/06/18 09/06/18 09/06/18 Range/Units 16:29 12:14 12:14 WBC (4.8-10.8) x10^3/uL RBC (4.20-5.40) 10^6/uL Hgb (12.0-16.0) g/dL Hct (37.0-47.0) % MCV (81.0-99.0) fL MCH (27.0-31.0) pg MCHC (32.0-36.0) g/dL RDW (12.0-15.0) % Plt Count (130-450) 10^3/uL MPV (7.9-10.8) fL Neut # (Auto) (1.5-6.6) 10^3/uL Lymph # (Auto) (1.5-3.5) 10^3/uL [place] # (Auto) (0.0-1.0) 10^3/uL Eos # (Auto) (0.0-0.7) 10^3/uL Baso # (Auto) (0.0-0.1) 10^3/uL Absolute Nucleated RBC x10^3/uL Nucleated RBC % /100WBC Manual Slide Review WBC Morphology (NORMAL) Platelet Estimate (NORMAL) Platelet Morphology (NORMAL) RBC Morph Micro Appear (NORMAL) Sodium (135-145) mmol/L Potassium (3.5-5.0) mmol/L Chloride (101-111) mmol/L Carbon Dioxide (21-32) mmol/L Anion Gap (6-13) BUN (6-20) mg/dL Creatinine (0.4-1.0) mg/dL Estimated GFR (MDRD) (>89) Glucose (70-100) mg/dL Calcium (8.5-10.3) mg/dL B-Natriuretic Peptide 208 H (5-100) pg/mL TSH (0.34-5.60) uIU/mL Blood Type O POSITIVE Blood Type Recheck O POSITIVE Antibody Screen NEGATIVE Crossmatch IS Only See Detail - Other Results/Comments Other Results/Comments: Review of overnight telemetry: Assessment/Plan - Problem List (1) Anemia associated with chemotherapy Impression: Conclusion/Plan: Day +9 s/p last chemo administration. Hgb down to 7 on admission, Hct at 22. Received 2u PRBCs overnight. Hgb up to 10 and Hct to 32 this AM. Plan: -Repeat CBC in AM, transfuse if Hgb <8 (2) Orthostatic dizziness Conclusion/Plan: Orthostatic VS obtained this am without a drop in BP, or rise in HR from supine to sitting. Patient was unable to stand to complete orthostatics due to fear/anxiety around passing out. She has received ~4L in IVF + 2u PRBCs for fluid resuscitation. Plan: -1L NS bolus -Continue IVF at maintenance rate of 85cc/hr -Strongly encourage PO intake, food and fluids (3) UTI (urinary tract infection) Conclusion/Plan: Received IV antibiotics in the emergency room. Overnight, Abx was transitioned to Aztreonam in setting of resistance to FQs on previous urine culture. Pt has been afebrile and WBC stable 5.6 Plan: -Transition to PO Abx. Will prescribe bactrim as previous culture shows sensitivities to it. (4) Atrial fibrillation with rapid ventricular response Conclusion/Plan: Diff Dx of hyperthyroid, acute OR, and PE effectively ruled out. Likely a paroxysmal Afib, acutely presenting in setting of infection an dehydration. On review of tele strip this AM, and per auscultation, patient is back in a sinus tachy Plan: -Low dose metoprolol for rate control -Maintain telemetry monitoring overnight (5) DANIAL (acute kidney injury) Conclusion/Plan: In setting of severe dehydration and UTI. Crea 1.2 on admit, mildly improved to 1.1 today. Low baseline for patient is 0.6. Plan: -IV hydration per above -Recheck BMP for BUN/Cr again tomorrow <Kitty Erickson - Last Filed: 09/07/18 16:11> Subjective - Subjective Subjective: In spite of liters of fluid for hydration, and 2 units of blood, she is not able to stand. We can get her to sit up from a lying position, but when we try to get her to stand she gets so dizzy, and very fearful of falling. Food is not tasting good Objective - Vital Signs/Intake & Output Vital Signs: Vital Signs x48h Temp Pulse Pulse Pulse Resp BP BP 09/07/18 14:18 95 116/43 L 09/07/18 11:29 37.3 C 99 19 103/46 L 09/07/18 09:43 122 H 106/46 L 09/07/18 09:00 110 H 09/07/18 08:26 37.6 C H 101 H 16 115/47 L BP Pulse Ox 09/07/18 14:18 96 09/07/18 11:29 94 09/07/18 09:43 09/07/18 09:00 101/45 L 09/07/18 08:26 95 Intake & Output: Intake & Output 09/04/18 09/05/18 09/06/18 09/07/18 23:59 23:59 23:59 23:59 Intake Total 1473.0 1927 Balance 1473.0 192 - Objective Comments/Other: Elderly white female who looks older than stated age, with diffuse alopecia, appearance. As I sit her up in bed, she does get very lightheaded. Selected Entries 09/07/18 09/07/18 09:00 09:43 Heart Rate [ 122 H Sitting (After 1 Minute)] Heart Rate [ 110 H Supine] Blood Pressure 106/46 L [Sitting (After 1 Minute)] Blood Pressure 101/45 L [Supine] [place] sclera Oral mucosa much less long goods drier than last night but lips are still dry. Neck has shotty adenopathy but not stiff Lungs are clear to auscultation and percussion. No crackles rhonchi wheezing. No increased respiratory effort. Cardiac regular rate and rhythm with a murmur, and sitting up causes her to be tachycardic Abdomen is soft, nontender, hypoactive bowel sounds, no masses that are discrete palpable. She has generalized nodularity intra-abdominally. Extremities are cool, not as cold to touch as they were last night. Pale. 1+ pedal edema. Neurologically she is alert and oriented to person place and time. Cranial nerves appear grossly intact with 1 not tested. Motor exam is without focal deficit. However she has severe, severe generalized weakness that thus not allow her to sit up unassisted and definitely not stand. - Lab Results Fish Bones: 09/07/18 06:56 09/07/18 08:10 Other Labs: Lab Results x24hrs 09/07/18 09/07/18 09/07/18 Range/Units 08:10 06:56 06:56 WBC 5.6 (4.8-10.8) x10^3/uL RBC 3.82 L (4.20-5.40) 10^6/uL Hgb 10.9 L (12.0-16.0) g/dL Hct 32.5 L (37.0-47.0) % MCV 85.1 (81.0-99.0) fL MCH 28.5 (27.0-31.0) pg MCHC 33.5 (32.0-36.0) g/dL RDW 19.1 H (12.0-15.0) % Plt Count 84 L (130-450) 10^3/uL MPV 12.1 H (7.9-10.8) fL Neut # (Auto) 4.2 (1.5-6.6) 10^3/uL Lymph # (Auto) 0.6 L (1.5-3.5) 10^3/uL [place] # (Auto) 0.6 (0.0-1.0) 10^3/uL Eos # (Auto) 0.0 (0.0-0.7) 10^3/uL Baso # (Auto) 0.0 (0.0-0.1) 10^3/uL Absolute Nucleated RBC 0.00 x10^3/uL Nucleated RBC % 0.0 /100WBC Manual Slide Review Indicated WBC Morphology TOXIC VACUOLATION (NORMAL) Platelet Estimate DECREASED (<130,000) (NORMAL) Platelet Morphology 1+ LARGE PLATELETS (NORMAL) RBC Morph Micro Appear OVALOCYTES (NORMAL) Sodium 132 L (135-145) mmol/L Potassium 3.9 (3.5-5.0) mmol/L Chloride 96 L (101-111) mmol/L Carbon Dioxide 24 (21-32) mmol/L Anion Gap 12.0 (6-13) BUN 21 H (6-20) mg/dL Creatinine 1.1 H (0.4-1.0) mg/dL Estimated GFR (MDRD) 48 L (>89) Glucose 113 H (70-100) mg/dL Calcium 8.1 L (8.5-10.3) mg/dL TSH 0.83 (0.34-5.60) uIU/mL Blood Type Blood Type Recheck Antibody Screen Crossmatch IS Only 09/06/18 09/06/18 Range/Units 16:29 12:14 WBC (4.8-10.8) x10^3/uL RBC (4.20-5.40) 10^6/uL Hgb (12.0-16.0) g/dL Hct (37.0-47.0) % MCV (81.0-99.0) fL MCH (27.0-31.0) pg MCHC (32.0-36.0) g/dL RDW (12.0-15.0) % Plt Count (130-450) 10^3/uL MPV (7.9-10.8) fL Neut # (Auto) (1.5-6.6) 10^3/uL Lymph # (Auto) (1.5-3.5) 10^3/uL [place] # (Auto) (0.0-1.0) 10^3/uL Eos # (Auto) (0.0-0.7) 10^3/uL Baso # (Auto) (0.0-0.1) 10^3/uL Absolute Nucleated RBC x10^3/uL Nucleated RBC % /100WBC Manual Slide Review WBC Morphology (NORMAL) Platelet Estimate (NORMAL) Platelet Morphology (NORMAL) RBC Morph Micro Appear (NORMAL) Sodium (135-145) mmol/L Potassium (3.5-5.0) mmol/L Chloride (101-111) mmol/L Carbon Dioxide (21-32) mmol/L Anion Gap (6-13) BUN (6-20) mg/dL Creatinine (0.4-1.0) mg/dL Estimated GFR (MDRD) (>89) Glucose (70-100) mg/dL Calcium (8.5-10.3) mg/dL TSH (0.34-5.60) uIU/mL Blood Type O POSITIVE Blood Type Recheck O POSITIVE Antibody Screen NEGATIVE Crossmatch IS Only See Detail ABX Reporting Has patient been on IV antibiotics over the past 48 hours?: Yes Assessment/Plan - Problem List (1) Orthostatic dizziness Impression: still present even after IVF and 2 units of PRBC's. Plan: remain for further hydration until BP higher and she can stand to ambulate. (2) Anemia associated with chemotherapy Impression: Hgb now up to 10. No further transfusion. (3) UTI (urinary tract infection) Impression: Day #2 abx. She grew out E coli 01/2018. Abx changed to empiric coverage of those results. When she goes home,it will be on bactrim DS bid. Qualifiers: Urinary tract infection type: acute cystitis (4) Atrial fibrillation with rapid ventricular response Impression: I spoke to her Oncology group to the MD tombstone erector. He does not recommend anticogulation since her platelets are dropping w her chemo. She has converted back to Sinus rhythm but she is still tachy with standing. Still needs further fluid resuscitation and will stay another day. (5) DANIAL (acute kidney injury) Impression: improved. Her creat has come down as has her BUN but still not at baseline. Again, further hydration. Encourage po intake.
[2018-09-07] MEDS: DEXTROSE 5% 1,000 ML IV SCH (16:48)
[2018-09-07] MEDS: ACETAMINOPHEN 325 MG TABLET PO PRN (16:54)
[2018-09-07] MEDS ORDERED: diphenhydrAMINE 25 MG CAPSULE PO ONE (22:00)
[2018-09-07] MEDS ORDERED: diphenhydrAMINE 25 MG CAPSULE PO SCH (22:20)
[2018-09-08] MEDS: SODIUM CHLORIDE FLUSH 0.9% 10 ML SYRINGE IVP SCH ×2 (02:01→09:27)
[2018-09-08] MEDS: DEXTROSE 5% 1,000 ML IV SCH (04:41)
--- NOTE | 2018-09-08 07:10 | Discharge Plan ---
"Discharge Plan for SNF / [facility] - Discharge Plan And Transition Orders Problem Reviewed?: Yes Disposition: 03 SNF DC/Xfer Condition: Fair Allergies and Adverse Reactions: Allergies Allergy/AdvReac Type Severity Reaction Status Date / Time erythromycin base Allergy Emesis Verified 01/21/18 10:47 Penicillins Allergy Hives Verified 01/21/18 10:46 Tetracyclines Allergy Emesis Verified 01/21/18 10:47 Health Concerns: You came to our emergency room because of weakness and fatigue. 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 We found you to have 3 problems. One was anemia was 7.1 g of hemoglobin. The other one was a urinary tract infection. The anemia is from chemotherapy induced suppression of your bone marrow.Your anemia and probable dehydration caused your kidneys to have mild kidney insufficiency. A third problem was new onset atrial fibrillation. Since this irregular heart beat is associated with a venous blood clot to the lungs, we did an angiogram to the veins that go to your heart and lungs and you did not have a pulmonary embolus. Plan of Treatment: You received 2 units of packed red cells that were irradiated. You also were started on antibiotics for the urinary tract infection. When someone has atrial fibrillation, it can increase the risk of having a stroke. The usual protocol is to start a patient on medicines that slow down the heart rate as well as give blood thinners to reduce the risk of stroke. I spoke to the oncologist on-call for your group. They do not recommend blood thinners since you are getting chem otherapy and the chemotherapy already lowers your platelets. Platelets stop bleeding. So if you have low platelets and you take a blood thinner, your risk of bleeding is too high. We tried to get you up to walk before discharge but because of your weakness you cannot get up. Care Goals: Please follow-up with your oncologist. Make sure you stay hydrated with drinking at least a liter of water a day. Complete your antibiotic therapy. Have your primary care provider reviewed the culture results of the urinary tract infections. Because you are currently having chemotherapy, we did not want to give you blood thinners for the new onset atrial fibrillation. We have given you medicine to slow it down. Please discuss with your oncologist and your primary care provider. Have your primary care provider refer you to a [facility] in the [facility]. Assessment: Patient and sister understand the care plan and will follow through. Inthe meantime, she will be transitioned for temporary rehabilitation to increase her strength, nutrition, and hydration at [facility]. - SNF / RESIDENTIAL Transition Orders Admit to (Facility): [facility] Under the care of (Name): Chilo Minor MD Discharge Diagnosis: 1. Orthostatic dizziness 2. Anemia associated with chemotherapy, s/p 2 units of PRBC's 3. UTI with gram neg chris, final ID pending. 4. Atrial fibrillation with rapid ventricular response, new onset 5. Acute kidney injury from dehydration 6. Generalized weakness and fatigue from illness Medicare Certification Statement: Notify PCP of admission and forward orders to primary provider for signature. Weight on admission and: Weekly Other Notification Orders: Call PCP immediately if patient develops dyspnea, chest pain/tightness or edema. House Bowel Program: Yes Additional Bowel Program Orders: If no BM after 2 days, nurse may give M.O.M. 30ml PO PRN and/or ducolax Supp 1 MD and/or BARBARA 250mg P.O., and/or senna 1-2 tabs PO. On day 3 nurse may give repeat above order until residents constipation is resolved. Annual Influenza Vaccine (between Oct 12 and May 11): Yes Two-step PPD per [facility] [phone] or approved exception documents: Yes Oxygen Orders: nasal canulu O2 to maintain above or at 92% saturation Lab Tests or X-ray Orders: CMP, CBC every Saturday Medication Orders: PLEASE REFER TO THE DISCHARGE MEDICATION LIST. Insulin Orders?: No - Medications New Prescriptions: Metoprolol Tartrate [Lopressor] 12.5 mg PO BID #30 tablet Sulfamethoxazole/Trimethoprim [Bactrim 400-80 mg Tablet] 1 each PO BID #10 tablet - Diet Type: Geriatric Texture: Regular Liquids: Thin May have monthly special meal: Yes - Therapies | Activity Therapy: Evaluation | Treat if indicated: PT Rehabilitation Potential: Maximize functional status, Return to independent living Activity: Activity as Tolerated Weight Bearing: Full Weight Assistance Devices: Walker Follow Up: Elias Minor PCP Dr. Torres, oncology"
[2018-09-08 07:59] LABS: HGB - HEMOGLOBIN 8.9 g/dL (12.0-16.0); MEAN CORPUSCULAR HEMOGLOBIN 28.3 pg (27.0-31.0); MEAN CORPUSCULAR HGB CONC 32.8 g/dL (32.0-36.0); MEAN PLATELET VOLUME 12.5 fL (7.9-10.8); RED BLOOD COUNT 3.15 10^6/uL (4.20-5.40); RED CELL DISTRIBUTION WIDTH 19.4 % (12.0-15.0); WHITE BLOOD COUNT 3.7 x10^3/uL (4.8-10.8)
[2018-09-08 09:11] VITALS: BP 91/70
[2018-09-08] MEDS: POLYETHYLENE GLYCOL 3350 17 GM PACKET PO SCH (09:27)
[2018-09-08] MEDS: AZTREONAM 1 GM in SODIUM CHLORIDE 0.9% MINIBAG 100 ML IV SCH (09:28)
== END 2018-09-08 14:50 ==
LOC: EDUNIT# → ED 10:49 → MS2 17:30
PROVIDERS: ADMIT Specialist; ATTEND Specialist
DX: R42 Dizziness and giddiness (principal); E86.0 Dehydration; D64.81 Anemia due to antineoplastic chemotherapy; C54.1 Malignant neoplasm of endometrium; I48.91 Unspecified atrial fibrillation; N17.9 Acute kidney failure, unspecified; I10 Essential (primary) hypertension; E87.1 Hypo-osmolality and hyponatremia; N39.0 Urinary tract infection, site not specified; B96.1 Klebsiella pneumoniae [K. pneumoniae] as the cause of diseases classified elsewhere; R91.8 Other nonspecific abnormal finding of lung field; Z92.21 Personal history of antineoplastic chemotherapy; R60.0 Localized edema; Z87.891 Personal history of nicotine dependence; I44.7 Left bundle-branch block, unspecified; E66.9 Obesity, unspecified; Z68.30 Body mass index [BMI] 30.0-30.9, adult
CPT/HCPCS: 36415; 71046; 71275; 80048; 80053; 81001; 83605; 83690; 83880; 84443; 84484; 85025; 85027; 85610; 85730; 86850; 86900; 86901; 86920; 87040; 87077; 87086; 87181; 93005; 96361; 96365; 96366; 96367; 96375; 99284; 99285; A9270; G0378; J3490; P9040; Q9967; 81003

== ENCOUNTER 2018-10-15 08:00 | Outpatient (CLI) | payer MEDICARE, OTHER ==
[2018-10-15 19:42] LABS: BILIRUBIN,URINE NEGATIVE (NEGATIVE); GLUCOSE, URINE (UA) NEGATIVE (NEGATIVE); KETONES,URINE (UA) NEGATIVE (NEGATIVE); LEUKOCYTE ESTERASE, URINE LARGE (NEGATIVE); NITRITE,URINE POSITIVE (NEGATIVE); OCCULT BLOOD,URINE MODERATE (NEGATIVE); PROTEIN,URINE 30 mg/dL (NEGATIVE); UROBILINOGEN,URINE 0.2 (NORMAL) E.U./dL (NORMAL)
[2018-10-15 19:59] LABS: CLARITY,URINE CLOUDY (CLEAR)
[2018-10-15 20:01] LABS: BACTERIA,URINE Moderate /HPF (None Seen); RBC,URINE TNTC /HPF (0-5); SQUAMOUS EPITHELIAL CELL,UR NONE SEEN (<= Few)
== END 2018-10-15 23:59 | disposition home or self-care (01) ==
LOC: LAB.N 08:00
PROVIDERS: ATTEND Physician Assistant Medical
DX: R39.15 Urgency of urination (principal)
CPT/HCPCS: 81001; 81003; 87077; 87086; 87181

== ENCOUNTER 2018-10-23 16:02 | Emergency (ER) | payer MEDICARE, OTHER ==
[2018-10-23] MEDS ORDERED: oxyCODONE 5 MG TABLET PO STA (16:15)
--- NOTE | 2018-10-23 16:16 | ED Physician Documentation ---
History of Present Illness - Stated complaint Stated Complaint: L LEG PX - Chief complaint Chief Complaint: General - History obtained from History obtained from: Patient (78-year-old woman with history of endometrial cancer, last chemotherapy last month. She is had 10 days of progressive left leg swelling which was initially mild and now more severe. There is no associated shortness of breath or chest pain. She has a history of anemia but that was from the chemotherapy, no history of internal bleeding. She is never had a DVT or PE.) Review of Systems Ten Systems: 10 systems reviewed and negative Constitutional: reports: Fatigue. 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: Uterine cancer (leiomyosarcoma since 04/2018), Other () : None HEENT: Other Psych: Claustrophobia Musculoskeletal: Osteoarthritis, Chronic back pain Derm: Psoriasis - Past Surgical History Past Surgical History: Yes General: Cholecystectomy, Gastric surgery, Colonoscopy Ortho: Arthroscopic surgery /SENIOR PYTHON DEVELOPER: Hysterectomy HEENT: Cataracts - Present Medications Home Medications: Ambulatory Orders Medication Instructions Recorded Confirmed Metoprolol Tartrate [Lopressor] 12.5 mg PO BID #30 tablet 09/07/18 Sulfamethoxazole/Trimethoprim 1 each PO BID #10 tablet 09/07/18 [Bactrim 400-80 mg Tablet] - Allergies Allergies/Adverse Reactions: Allergies Allergy/AdvReac Type Severity Reaction Status Date / Time erythromycin base Allergy Emesis Verified 01/21/18 10:47 Penicillins Allergy Hives Verified 01/21/18 10:46 Tetracyclines Allergy Emesis Verified 01/21/18 10:47 - Social History Does the pt smoke?: No Smoking Status: Former smoker Does the pt drink ETOH?: No Does the pt have substance abuse?: No - Immunizations Immunizations are current?: Yes - POLST Patient has POLST: No POLST Status: Full Code PD ED PE NORMAL - Vitals Vital signs reviewed: Yes - General General: Alert and oriented X 3, No acute distress, Other (alopecia) - HEENT HEENT: PERRL, EOMI - Neck Neck: Supple, no meningeal sign, No bony TTP - Cardiac Cardiac: RRR, No murmur - Respiratory Respiratory: No respiratory distress, Clear bilaterally - Abdomen Abdomen: Non tender - Back Back: No CVA TTP, No spinal TTP - Extremities Extremities: Other (She has significant asymmetric pedal edema on the left from mid thigh down to the foot. The foot is warm and well perfused. It is not cyanotic.) - Neuro Neuro: Alert and oriented X 3, Normal speech Results - Vitals Vitals: Vital Signs - 24 hr 10/23/18 10/23/18 16:07 19:17 Temperature 36.3 C L Heart Rate 88 80 Respiratory 18 14 Rate Blood Pressure 125/63 108/94 H O2 Saturation 100 98 Oxygen O2 Source Room air - Labs Labs: Laboratory Tests 10/23/18 10/23/18 10/23/18 16:26 16:26 16:26 WBC 9.8 RBC 3.48 L Hgb 10.5 L Hct 33.8 L MCV 97.1 MCH 30.2 MCHC 31.1 L RDW 17.8 H Plt Count 194 MPV 10.5 Neut # (Auto) 6.9 H Lymph # (Auto) 1.9 [place] # (Auto) 0.8 Eos # (Auto) 0.1 Baso # (Auto) 0.0 Absolute Nucleated RBC 0.00 Nucleated RBC % 0.0 PT 13.3 H INR 1.2 Sodium 135 Potassium 4.0 Chloride 95 L Carbon Dioxide 29 Anion Gap 11.0 BUN 23 H Creatinine 0.9 Estimated GFR (MDRD) 60 L Glucose 160 H Calcium 8.5 Total Bilirubin 0.9 AST 18 ALT 10 Alkaline Phosphatase 109 Total Protein 7.3 Albumin 2.6 L Globulin 4.7 H Albumin/Globulin Ratio 0.6 L Lipase 15 L PD MEDICAL DECISION MAKING - ED course ED course: This is an 78-year-old woman with active endometrial cancer presents with symptoms and findings very concerning for a DVT. Ultrasound shows an occlusive femoral DVT which probably needs intervention, she was started on a high-dose heparin drip. Most of her cancer care was at [place], we called them and after some delay they confirmed that unfortunately they do not have a bed available for her. Subsequent to that we called [facility], they were also full. She was graciously accepted by Dr. Tova Rebolledo, hospitalist at [place] who will consult vascular surgery. Cobras were completed. She needs transfer to a higher level of care for vascular and interventional radiology input. Departure - Departure Disposition: 02 Transfer Acute Care Hosp Clinical Impression: Femoral DVT (deep venous thrombosis) Qualifiers: Chronicity: acute Laterality: left Qualified Code(s): I82.412 - Acute embolism and thrombosis of left femoral vein Condition: Serious
[2018-10-23 16:33] LABS: BASOPHILS % (AUTO) 0.4 %; EOSINOPHILS # (AUTO) 0.1 10^3/uL (0.0-0.7); EOSINOPHILS % (AUTO) 0.5 %; HGB - HEMOGLOBIN 10.5 g/dL (12.0-16.0); LYMPHOCYTES # (AUTO) 1.9 10^3/uL (1.5-3.5); LYMPHOCYTES % (AUTO) 19.4 %; MEAN CORPUSCULAR HEMOGLOBIN 30.2 pg (27.0-31.0); MEAN CORPUSCULAR HGB CONC 31.1 g/dL (32.0-36.0); MEAN CORPUSCULAR VOLUME 97.1 fL (81.0-99.0); MEAN PLATELET VOLUME 10.5 fL (7.9-10.8); MONOCYTES # (AUTO) 0.8 10^3/uL (0.0-1.0); MONOCYTES % (AUTO) 7.8 %; NEUTROPHILS # (AUTO) 6.9 10^3/uL (1.5-6.6); NEUTROPHILS % (AUTO) 70.5 %; PLT - PLATELET COUNT 194 10^3/uL (130-450); RED BLOOD COUNT 3.48 10^6/uL (4.20-5.40); RED CELL DISTRIBUTION WIDTH 17.8 % (12.0-15.0); WHITE BLOOD COUNT 9.8 x10^3/uL (4.8-10.8)
[2018-10-23 16:42] LABS: INR 1.2 (0.8-1.2); PT - PROTHROMBIN TIME 13.3 secs (9.9-12.6)
[2018-10-23 16:43] LABS: ALBUMIN 2.6 g/dL (3.2-5.5); ALBUMIN/GLOBULIN RATIO 0.6 (1.0-2.2); BILIRUBIN,TOTAL 0.9 mg/dL (0.2-1.0); CALCIUM 8.5 mg/dL (8.5-10.3); CREATININE 0.9 mg/dL (0.4-1.0); TOTAL PROTEIN 7.3 g/dL (6.7-8.2)
[2018-10-23] MEDS ORDERED: HEPARIN 25000UNITS/500ML (D5W) 25,000 UNIT/500 ML BAG IV SCH (18:00)
--- NOTE | 2018-10-23 18:11 | Ultrasound Report ---
Reason: l leg pain Procedure Date: 10/23/2018 Accession Number: [id number] / [id number] Procedure: US - Duplex Ext Veins Left CPT Code: FULL RESULT: EXAM: LEFT LOWER EXTREMITY VENOUS ULTRASOUND EXAM DATE: 10/23/2018 05:46 PM. CLINICAL HISTORY: L leg pain, edema. COMPARISON: None. TECHNIQUE: Real-time sonographic vascular imaging was performed by the farm instructor through the lower extremity utilizing both color-flow and Doppler spectral analysis. Multiple assistance representative static images were saved for review. FINDINGS: Common Femoral Vein (CFV): Occlusive thrombosis. CFV-GSV Junction: Occlusive thrombosis. Profunda Femoral Vein (PFV): Occlusive thrombosis. Femoral Vein (FV) Prox: Occlusive thrombosis. Femoral Vein (FV) Mid: Nearly occlusive thrombosis. Femoral Vein (FV) Dist: Nearly occlusive thrombosis. Popliteal Vein: Occlusive thrombosis. Posterior Tibial Veins: Not well seen. Peroneal Veins: Not well seen. Other: Prominent edema distally. IMPRESSION: Extensive deep venous thrombosis. RADIA The above critical result findings were discussed with Magdaleno Alarcon by Dr. Se Jackson at 06:10 PM on 10/23/2018.
[2018-10-23] MEDS ORDERED: HEPARIN 5,000 UNIT/ML VIAL IVP SCH (19:00)
[2018-10-23 21:09] VITALS: BP 116/52
== END 2018-10-23 22:33 | disposition short-term general hospital (02) ==
LOC: ED 16:02
DX: I82.412 Acute embolism and thrombosis of left femoral vein (principal); I82.432 Acute embolism and thrombosis of left popliteal vein; C57.3 Malignant neoplasm of parametrium; I10 Essential (primary) hypertension; E11.42 Type 2 diabetes mellitus with diabetic polyneuropathy; Z87.891 Personal history of nicotine dependence
CPT/HCPCS: 36415; 80053; 83690; 85025; 85610; 93971; 96374; 99285; A9270

== ENCOUNTER 2018-11-19 10:09 | Outpatient (CLI) | payer MEDICARE, OTHER | END 2018-11-19 10:10 | disposition home or self-care (01) | LOC: DI 10:09 | PROVIDERS: ATTEND Internal Medicine Cardiovascular Disease | DX: I48.0 Paroxysmal atrial fibrillation (principal); I27.20 Pulmonary hypertension, unspecified; I51.7 Cardiomegaly | CPT/HCPCS: 93306 ==

== ENCOUNTER 2018-12-02 13:56 | Outpatient (CLI) | payer MEDICARE, OTHER ==
[2018-12-02 14:23] LABS: BASOPHILS # (AUTO) 0.1 10^3/uL (0.0-0.1); EOSINOPHILS # (AUTO) 0.2 10^3/uL (0.0-0.7); EOSINOPHILS % (AUTO) 3.5 %; HGB - HEMOGLOBIN 12.1 g/dL (12.0-16.0); LYMPHOCYTES # (AUTO) 2.1 10^3/uL (1.5-3.5); LYMPHOCYTES % (AUTO) 32.8 %; MEAN CORPUSCULAR HEMOGLOBIN 30.1 pg (27.0-31.0); MEAN CORPUSCULAR HGB CONC 30.8 g/dL (32.0-36.0); MEAN CORPUSCULAR VOLUME 97.8 fL (81.0-99.0); MEAN PLATELET VOLUME 10.7 fL (7.9-10.8); MONOCYTES # (AUTO) 0.5 10^3/uL (0.0-1.0); MONOCYTES % (AUTO) 7.2 %; NEUTROPHILS # (AUTO) 3.5 10^3/uL (1.5-6.6); PLT - PLATELET COUNT 169 10^3/uL (130-450); RED BLOOD COUNT 4.02 10^6/uL (4.20-5.40); RED CELL DISTRIBUTION WIDTH 14.3 % (12.0-15.0); WHITE BLOOD COUNT 6.3 x10^3/uL (4.8-10.8)
[2018-12-02] MEDS ORDERED: IOVERSOL 320 50 ML VIAL ONE (14:29)
[2018-12-02] MEDS ORDERED: IOVERSOL 320 100 ML VIAL IVP ONE ×2 (14:29→19:24)
[2018-12-02 14:46] LABS: ALBUMIN 3.6 g/dL (3.2-5.5); ALBUMIN/GLOBULIN RATIO 0.9 (1.0-2.2); BILIRUBIN,TOTAL 0.8 mg/dL (0.2-1.0); CALCIUM 9.2 mg/dL (8.5-10.3); CREATININE 0.9 mg/dL (0.4-1.0); TOTAL PROTEIN 7.5 g/dL (6.7-8.2)
[2018-12-02] MEDS ORDERED: IOVERSOL 320 50 ML VIAL PO ONE (19:24)
--- NOTE | 2018-12-04 15:24 | CT Report ---
Reason: MALIGNANT NEOPLASM OF ENDOMETRIUM Procedure Date: 12/02/2018 Accession Number: [id number] / [id number] Procedure: CT - CHEST W CPT Code: FULL RESULT: EXAM: CT CHEST EXAM DATE: 12/02/2018 03:20 PM. CLINICAL HISTORY: MALIGNANT NEOPLASM OF ENDOMETRIUM. COMPARISONS: CHEST ANGIO 09/06/2018 7:58 PM CHEST W/ 04/14/2018 2:41 PM. TECHNIQUE: Routine helical CT imaging was performed through the chest. IV contrast: 100 cc Optiray 320. Reconstructions: Coronal and sagittal. In accordance with CT protocol optimization, one or more of the following dose reduction techniques were utilized for this exam: automated exposure control, adjustment of mA and/or KV based on patient size, or use of iterative reconstructive technique. FINDINGS: Lungs/Pleura: No suspicious nodules, bronchial thickening, consolidation, or edema. Previously seen 2-3 mm nodular densities last conspicuous. Pulmonary vasculature is normal. No pericardial or pleural effusion. No pneumothorax. Mediastinum: Stable 1.5 cm subcarinal lymph node. No new adenopathy or masses. Prominent pulmonary arteries as before. Bones: No destruction. Minor degenerative changes. Included upper Abdomen: Postsurgical changes stomach and gallbladder. Other: Right Port-A-Cath IMPRESSION: No findings of metastatic disease to the chest. RADIA
--- NOTE | 2018-12-05 01:33 | CT Report ---
Reason: MALIGNANT NEOPLASM OF ENDOMETRIUM Procedure Date: 12/02/2018 Accession Number: [id number] / [id number] Procedure: CT - Abdomen/Pelvis W CPT Code: FULL RESULT: EXAM: CT ABDOMEN AND PELVIS EXAM DATE: 12/02/2018 03:20 PM. CLINICAL HISTORY: MALIGNANT NEOPLASM OF ENDOMETRIUM. COMPARISONS: ABDOMEN/PELVIS W/O 01/17/2018 9:52 AM. TECHNIQUE: Routine helical CT imaging was performed through the abdomen and pelvis. IV contrast: OPTI 320 100ML. Enteric contrast: No. Reconstructions: Coronal and sagittal. In accordance with CT protocol optimization, one or more of the following dose reduction techniques were utilized for this exam: automated exposure control, adjustment of mA and/or KV based on patient size, or use of iterative reconstructive technique. FINDINGS: Lung Bases: Unremarkable. Liver: Normal. No masses. Gallbladder/Bile Ducts: Resected Spleen: Normal. Pancreas: Normal. Adrenal Glands: Normal. Kidneys: Normal. No masses or hydronephrosis. Peritoneal Cavity/Bowel: Post bariatric procedure for stomach. No discernible complications. No evidence for bowel obstruction. No lymphadenopathy. No inflammatory changes of the colon. Pelvic Organs: The uterus and adnexa have been resected. The vaginal cuff is unremarkable. There is some fluid in the vagina. There is also some fullness to the right of the rectum in the right rectal fossa. Vasculature: Atherosclerotic vascular Bones: Degenerative changes of the spine. Other: None. IMPRESSION: 1. No evidence for metastatic disease within the abdomen and pelvis. 2. Prior hysterectomy and bilateral salpingo-oophorectomy. No evidence for local tumor recurrence. 3. Fluid seen within the vagina and slight fullness to the right of the rectum in the region of the radiation rectal fossa. Significance uncertain. RADIA
== END 2018-12-02 13:57 | disposition home or self-care (01) ==
LOC: LAB 13:56 → DI 13:57
PROVIDERS: ATTEND Internal Medicine Medical Oncology
DX: C54.1 Malignant neoplasm of endometrium (principal)
CPT/HCPCS: 36415; 71260; 74177; 80053; 82378; 85025; 86304; Q9967

== ENCOUNTER 2019-01-06 11:54 | Outpatient (CLI) | payer MEDICARE, OTHER ==
--- NOTE | 2019-01-06 14:38 | Mammography Report ---
Reason: ROUTINE MAMMO Procedure Date: 01/06/2019 Accession Number: [id number] / [id number] Procedure: MGN - Screening Mammo Dig Bilat CPT Code: Final Report FULL RESULT: EXAM: Screening Mammo Dig Bilat DATE: 01/06/2019 12:20 PM CLINICAL HISTORY: The patient is an asymptomatic 78-year-old female presenting for screening mammography. Family history (sister) of breast cancer. TECHNIQUE: (B) - Bilateral CC and MLO views were obtained. COMPARISON: 11/25/2017, 06/08/2014 and 11/01/2009 PARENCHYMAL PATTERN: (A) - The breasts demonstrate scattered fibroglandular densities bilaterally. FINDINGS: There are no suspicious masses, calcifications, or areas of distortion. IMPRESSION: Negative examination. BI-RADS category 1. RECOMMENDATION: (ANNUAL) - Recommend routine annual screening mammography. BI-RADS CATEGORY: (1) - Negative. STANDARD QUALIFYING STATEMENTS: 1. This examination was not reviewed with the aid of Computer-Aided Detection (CAD). 2. A negative or benign imaging report should not preclude biopsy if clinically suspicious findings are present. 3. Dense breasts may obscure an underlying neoplasm.
== END 2019-01-06 11:55 | disposition home or self-care (01) ==
LOC: DI.N 11:54
DX: Z12.31 Encounter for screening mammogram for malignant neoplasm of breast (principal); Z80.3 Family history of malignant neoplasm of breast
CPT/HCPCS: 77067

== ENCOUNTER 2019-03-24 08:24 | Outpatient (CLI) | payer MEDICARE, OTHER ==
[2019-03-24 12:23] LABS: MEAN CORPUSCULAR HEMOGLOBIN 28.6 pg (27.0-31.0); MEAN CORPUSCULAR HGB CONC 31.4 g/dL (32.0-36.0); RED BLOOD COUNT 4.55 10^6/uL (4.20-5.40); RED CELL DISTRIBUTION WIDTH 15.7 % (12.0-15.0); WHITE BLOOD COUNT 5.8 x10^3/uL (4.8-10.8)
[2019-03-24 12:35] LABS: ALBUMIN 3.6 g/dL (3.2-5.5); ALBUMIN/GLOBULIN RATIO 1.1 (1.0-2.2); BILIRUBIN,TOTAL 0.6 mg/dL (0.2-1.0); CALCIUM 8.9 mg/dL (8.5-10.3); CREATININE 0.9 mg/dL (0.4-1.0); TOTAL PROTEIN 6.9 g/dL (6.7-8.2)
== END 2019-03-24 23:59 | disposition home or self-care (01) ==
LOC: LAB.N 08:24
PROVIDERS: ATTEND Obstetrics & Gynecology
DX: C55 Malignant neoplasm of uterus, part unspecified (principal)
CPT/HCPCS: 36415; 80053; 85027

== ENCOUNTER 2020-02-26 10:45 | Outpatient (CLI) | payer MEDICARE, OTHER ==
[2020-02-26 17:54] LABS: BASOPHILS # (AUTO) 0.1 10^3/uL (0.0-0.1); BASOPHILS % (AUTO) 1.4 %; EOSINOPHILS # (AUTO) 0.2 10^3/uL (0.0-0.7); EOSINOPHILS % (AUTO) 3.3 %; HGB - HEMOGLOBIN 11.4 g/dL (12.0-16.0); LYMPHOCYTES # (AUTO) 1.4 10^3/uL (1.5-3.5); LYMPHOCYTES % (AUTO) 25.3 %; MEAN CORPUSCULAR HEMOGLOBIN 23.4 pg (27.0-31.0); MEAN CORPUSCULAR HGB CONC 29.7 g/dL (32.0-36.0); MEAN CORPUSCULAR VOLUME 78.7 fL (81.0-99.0); MEAN PLATELET VOLUME 12.7 fL (7.9-10.8); MONOCYTES # (AUTO) 0.5 10^3/uL (0.0-1.0); MONOCYTES % (AUTO) 9.5 %; NEUTROPHILS # (AUTO) 3.4 10^3/uL (1.5-6.6); PLT - PLATELET COUNT 183 10^3/uL (130-450); RED BLOOD COUNT 4.88 10^6/uL (4.20-5.40); RED CELL DISTRIBUTION WIDTH 15.8 % (12.0-15.0); WHITE BLOOD COUNT 5.7 x10^3/uL (4.8-10.8)
[2020-02-26 19:22] LABS: CA 125 7.8 U/mL (0.0-35.0)
[2020-02-26 19:25] LABS: % IRON SATURATION 7 % (20-50); ALBUMIN 3.4 g/dL (3.2-5.5); ALKALINE PHOSPHATASE 130 IU/L (42-121); ALT ALANINE AMINOTRANSFERASE < 10 IU/L (10-60); AST ASPARTATE AMINOTRANSFERASE 16 IU/L (10-42); BILIRUBIN,TOTAL 0.5 mg/dL (0.2-1.0); BUN - BLOOD UREA NITROGEN 26 mg/dL (6-20); CALCIUM 8.7 mg/dL (8.5-10.3); CARBON DIOXIDE - CO2 26 mmol/L (21-32); CHLORIDE 104 mmol/L (101-111); CHOL/HDL RATIO 3.2 (<4.4); CHOLESTEROL 165 mg/dL; CREATININE 0.9 mg/dL (0.4-1.0); GLUCOSE 116 mg/dL (70-100); HDL CHOLESTEROL 51 mg/dL; IRON 32 ug/dL (28-170); LDL CHOLESTEROL,CALCULATED 92 mg/dL; LDL/HDL RATIO 1.8 (<4.4); SODIUM 138 mmol/L (135-145); TOTAL IRON BINDING CAPACITY 459 ug/dL (250-450); TOTAL PROTEIN 6.9 g/dL (6.7-8.2); TRANSFERRIN 328 mg/dL (192-382); VLDL CHOLESTEROL 22 mg/dL
[2020-02-26 19:31] LABS: FERRITIN 5.7 ng/mL (11.0-306.8)
== END 2020-02-26 23:59 | disposition home or self-care (01) ==
LOC: LAB.WCP 10:45
PROVIDERS: ATTEND Internal Medicine
DX: C54.1 Malignant neoplasm of endometrium (principal); D64.81 Anemia due to antineoplastic chemotherapy
CPT/HCPCS: 36415; 80053; 80061; 82378; 82607; 82728; 83540; 83721; 84443; 84466; 85025; 86304

== ENCOUNTER 2020-05-16 11:02 | Outpatient (CLI) | payer MEDICARE, OTHER ==
--- NOTE | 2020-05-16 13:20 | DEXA Report ---
PROCEDURE: Dexa Spine and/or Hip INDICATIONS: POST MENOPAUSAL TECHNIQUE: Dual energy x-ray absorptiometry (DXA) was performed on a Seguricel System. Regions measur ed are the AP Spine, femoral neck, and if needed forearm. COMPARISON: None. FINDINGS: Lumbar Spine: Bone Mineral Density 0.953 g/cm/cm,T score -1.9, osteopenia Left Hip: Bone Mineral Density 0.641 g/cm/cm,T score -2.9, osteoporosis Left Femoral Neck: Bone Mineral Density 0.633 g/cm/cm, T score -2.9, osteoporosis (T score greater or equal to -1.0: NORMAL) (T score from -1.1 to -2.4: OSTEOPENIA) (T score less than or equal to -2.5 to: OSTEOPOROSIS) Impression: Osteoporosis at the left hip overall and also the left femoral neck and there is osteopen ia at the lumbosacral spine overall. Patients with diagnosis of osteoporosis or osteopenia should have regular bone mineral density assess ment. For those eligible for Medicare, routine testing is allowed once every 2 years. Testing frequ ency can be increased for patients who have rapidly progressing disease or for those who are receivin g medical therapy to restore bone mass. Reviewed by: Arnold Rojas MD on 05/16/2020 1:19 PM PDT Approved by: Arnold Rojas MD on 05/16/2020 1:19 PM PDT Station ID: [id number]
== END 2020-05-16 11:03 | disposition home or self-care (01) ==
LOC: DI 11:02
PROVIDERS: ATTEND Internal Medicine
DX: M81.0 Age-related osteoporosis without current pathological fracture (principal); Z78.0 Asymptomatic menopausal state

== ENCOUNTER 2020-05-16 11:06 | Outpatient (CLI) | payer MEDICARE, OTHER ==
--- NOTE | 2020-05-17 08:12 | Mammography Report ---
BILATERAL DIGITAL SCREENING MAMMOGRAM 3D/2D: 05/16/2020 CLINICAL: Routine screening. Comparison is made to exams dated: 01/06/2019 mammogram, 11/25/2017 mammogram, and 06/08/2014 mammogr am - [facility]. The tissue of both breasts is predominantly fatty. No significant masses, calcifications, or other findings are seen in either breast. There has been no significant interval change. IMPRESSION: NEGATIVE There is no mammographic evidence of malignancy. A 1 year screening mammogram is recommended. This exam was interpreted at Station ID: [id number]. NOTE: For mammograms, a report in lay terms will be sent to the patient. Approximately 15% of breast malignancies will not be visualized mammographically. In the management of a palpable breast mass, a negative mammogram must not discourage biopsy of a clinically suspicious lesion. Electronically Signed By: Yousuf Damon M.D. slc/penrad:05/16/2020 13:50:22 ACR BI-RADS Category 1: Negative 3341F PARENCHYMAL PATTERN: (F) - The breast(s) demonstrate(s) diffuse fatty replacement. BI-RADS CATEGORY: (1) - 1 RECOMMENDATION: (ANNUAL) - Recommend routine annual screening mammography. [id number] 1 year screening LATERALITY: (B)
== END 2020-05-16 11:07 | disposition home or self-care (01) ==
LOC: DI 11:06
PROVIDERS: ATTEND Internal Medicine
DX: Z12.31 Encounter for screening mammogram for malignant neoplasm of breast (principal)

== ENCOUNTER 2021-07-04 16:01 | Outpatient (CLI) | payer MEDICARE, OTHER | END 2021-07-04 16:02 | disposition left against medical advice (07) | LOC: EMS 16:01 | DX: Z03.89 Encounter for observation for other suspected diseases and conditions ruled out (principal); Z79.02 Long term (current) use of antithrombotics/antiplatelets ==

== ENCOUNTER 2021-08-02 12:25 | Outpatient (CLI) | payer MEDICARE, OTHER | END 2021-08-02 12:26 | disposition home or self-care (01) | LOC: DI 12:25 | PROVIDERS: ATTEND Internal Medicine Cardiovascular Disease | DX: I25.10 Atherosclerotic heart disease of native coronary artery without angina pectoris (principal); I50.20 Unspecified systolic (congestive) heart failure; I51.7 Cardiomegaly | CPT/HCPCS: 93306 ==

== ENCOUNTER 2021-08-29 13:51 | Outpatient (CLI) | payer MEDICARE, OTHER | END 2021-08-29 13:52 | disposition critical access hospital (66) | LOC: EMS 13:51 | DX: N93.9 Abnormal uterine and vaginal bleeding, unspecified (principal); N39.0 Urinary tract infection, site not specified; R53.83 Other fatigue; R53.1 Weakness; R42 Dizziness and giddiness; Z79.01 Long term (current) use of anticoagulants | CPT/HCPCS: A0425; A0429 ==

== ENCOUNTER 2021-08-29 14:15 | Emergency (ER) | payer MEDICARE, OTHER ==
--- NOTE | 2021-08-29 14:26 | ED Physician Documentation ---
History of Present Illness - Stated complaint Stated Complaint: WEAKNESS/UTI - Chief complaint Chief Complaint: General - History obtained from History obtained from: Patient, EMS - History of Present Illness Timing: How many weeks ago - Additonal information Additional information: 80yoWith past medical history of urinary tract infection, anemia, previous hist ory of uterine cancer status post chemo and radiation, in remission since 2019 presents by EMS from home for blood in her urine, possible UTI, generalized weakness for a week. Patient states she completed a course of antibiotics 1 week ago for UTI from her urologist. She states that she was compliant with her Keflex prescription, however even after finishing her week of antibiotics she continued to feel poorly. Per EMS the patient's urologist had not heard from her in 2 days and called 911 for a welfare check. EMS state that when they found her she was in her bed resting comfortably. Patient stated that she had actually planned to call 911 later this afternoon because she was feeling poorly Review of Systems Ten Systems: 10 systems reviewed and negative Constitutional: reports: Fatigue. denies: Fever, Chills, Myalgias, Sweats Eyes: denies: Loss of vision, Decreased vision, Photophobia, Discharge, Irritation, Reviewed and negative, Other Ears: denies: Loss of hearing, Ear pain, Drainage/discharge, Tinnitus/ringing, Foreign body, Reviewed and negative, Other Nose: denies: Rhinorrhea / runny nose, Congestion, Epistaxis, Sinus pressure / pain, Foreign Body, Reviewed and negative, Other Throat: denies: Dental pain / toothache, Oral lesions / sores, Sore throat, Swollen tonsils, Swallowed foreign body, Reviewed and negative, Other Cardiac: denies: Chest pain / pressure, Palpitations, Pedal edema, Calf pain, Reviewed and negative, Other Respiratory: denies: Dyspnea, Cough, Hemoptysis, Wheezing, Reviewed and negative, Other GI: denies: Abdominal Pain, Abdominal Swelling, Nausea, Vomiting, Constipation, Diarrhea, Hematemesis, Bloody / black stool, Reviewed and negative, Other : reports: Dysuria, Hematuria. denies: Incontinent Skin: denies: Rash, Lesions, Abrasion (s), Laceration (s), Bite / sting, Reviewed and negative, Other Musculoskeletal: denies: Neck pain, Back pain, Extremity pain, Joint pain, Extremity swelling, Joint swelling, Pain with weight bearing, Reviewed and negative, Other Neurologic: reports: Generalized weakness. denies: Syncope, Confused, Unresponsive Psychiatric: denies: Depressed, Suicidal, Homicidal, Hallucinations, Delusions, Anxiety, Insomnia, Reviewed and negative, Other Endocrine: denies: Polydypsia, Polyuria, Polyphagia, Weight loss, Weight gain, Easy bruising / bleeding, Swollen lymph nodes, Reviewed and negative, Other Immunocompromised: denies: Immunocompromised, HIV/AIDS, Asplenic, Chemotherapy, Transplant, Reviewed and negative, Other PD PAST MEDICAL HISTORY - Past Medical History Cardiovascular: Hypertension, Murmur, Other Respiratory: Shortness of breath, Sleep apnea, Other Neuro: Peripheral neuropathy, Other Endocrine/Autoimmune: Type 2 diabetes, Other GI: Hepatitis, 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: Uterine cancer (leiomyosarcoma since 04/2018), Other () : None HEENT: Other Psych: Claustrophobia Musculoskeletal: Osteoarthritis, Chronic back pain Derm: Psoriasis - Past Surgical History Past Surgical History: Yes General: Cholecystectomy, Gastric surgery, Colonoscopy Ortho: Arthroscopic surgery /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: Hysterectomy HEENT: Cataracts - Present Medications Home Medications: Ambulatory Orders Medication Instructions Recorded Confirmed Metoprolol Tartrate [Lopressor] 12.5 mg PO BID #30 tablet 09/07/18 Sulfamethoxazole/Trimethoprim 1 each PO BID #10 tablet 09/07/18 [Bactrim 400-80 mg Tablet] Ciprofloxacin HCl [Cipro] 500 mg PO BID #20 tablet 08/29/21 Phenazopyridine HCl [Pyridium] 200 mg PO TID PRN #15 tablet 08/29/21 oxyCODONE/ACET 5/325 [Percocet 5 1 each PO Q4-6H PRN #5 tablet 08/29/21 mg/325 mg] - Allergies Allergies/Adverse Reactions: Allergies Allergy/AdvReac Type Severity Reaction Status Date / Time erythromycin base Allergy Emesis Verified 08/29/21 14:29 Penicillins Allergy Hives Verified 08/29/21 14:29 Tetracyclines Allergy Emesis Verified 08/29/21 14:29 - Social History Does the pt smoke?: No Smoking Status: Former smoker Does the pt drink ETOH?: No Does the pt have substance abuse?: No - Immunizations Immunizations are current?: Yes - POLST Patient has POLST: No POLST Status: Full Code PD ED PE NORMAL - Vitals Vital signs reviewed: Yes - General General: Alert and oriented X 3, No acute distress, Well developed/nourished, Other - HEENT HEENT: Atraumatic, PERRL, EOMI, Ears normal, Moist mucous membranes, Pharynx benign, Dentition benign, Other - Neck Neck: Supple, no meningeal sign, No bony TTP, No adenopathy, Thyroid normal, No JVD, No bruit, C-Spine cleared by NEXUS criteria, Other - Cardiac Cardiac: No murmur, No gallop, No rub, Strong equal pulses, Other (bradycardia) - Respiratory Respiratory: No respiratory distress, Clear bilaterally, Other - Abdomen Abdomen: Normal bowel sounds, Soft, Non tender, Non distended, No organomegaly, Other - Female Female : Deferred - Back Back: No CVA TTP, No spinal TTP, Other - Derm Derm: Warm and dry, No rash, Other (pale) - Neuro Neuro: Alert and oriented X 3, purse seiner 2-12 intact, No motor deficit, No sensory deficit, Normal speech, Other - Psych Psych: Normal mood, Normal affect, Other Results - Vitals Vitals: Vital Signs - 24 hr 08/29/21 08/29/21 08/29/21 14:24 16:59 18:17 Temperature 36.4 C L Heart Rate 68 62 64 Respiratory 20 14 13 Rate Blood Pressure 156/71 H 154/52 H 148/61 H O2 Saturation 100 100 100 Oxygen O2 Source Room air - Labs Labs: Laboratory Tests 08/29/21 08/29/21 08/29/21 14:40 14:40 14:40 WBC 6.4 RBC 4.25 Hgb 10.4 L Hct 33.9 L MCV 79.8 L MCH 24.5 L MCHC 30.7 L RDW 14.5 Plt Count 218 MPV 11.8 H Neut # (Auto) 4.3 Lymph # (Auto) 1.2 L Stanton # (Auto) 0.6 Eos # (Auto) 0.2 Baso # (Auto) 0.1 Absolute Nucleated RBC 0.00 Nucleated RBC % 0.0 PT 34.8 H INR 3.1 H Sodium 140 Potassium 3.9 Chloride 106 Carbon Dioxide 26 Anion Gap 8.0 BUN 19 Creatinine 1.3 H Estimated GFR (MDRD) 39 L Glucose 124 H Lactic Acid Calcium 8.5 Total Bilirubin 1.0 AST 16 ALT < 10 L Alkaline Phosphatase 121 Total Creatine Kinase 18 L Troponin I High Sens Total Protein 6.1 L Albumin 3.0 L Globulin 3.1 Albumin/Globulin Ratio 1.0 Urine Color Urine Clarity Urine pH Ur Specific [place] Urine Protein Urine Glucose (UA) Urine Ketones Urine Occult Blood Urine Nitrite Urine Bilirubin Urine Urobilinogen Ur Leukocyte Esterase Urine RBC Urine WBC Ur Squamous Epith Cells Urine Bacteria Ur Microscopic Review Urine Culture Comments 08/29/21 08/29/21 08/29/21 14:40 14:40 15:41 WBC RBC Hgb Hct MCV MCH MCHC RDW Plt Count MPV Neut # (Auto) Lymph # (Auto) Stanton # (Auto) Eos # (Auto) Baso # (Auto) Absolute Nucleated RBC Nucleated RBC % PT INR Sodium Potassium Chloride Carbon Dioxide Anion Gap BUN Creatinine Estimated GFR (MDRD) Glucose Lactic Acid 1.7 Calcium Total Bilirubin AST ALT Alkaline Phosphatase Total Creatine Kinase Troponin I High Sens 13.4 Total Protein Albumin Globulin Albumin/Globulin Ratio Urine Color RED/BLOODY Urine Clarity BLOODY Urine pH 6.5 Ur Specific [place] 1.025 Urine Protein >=300 H Urine Glucose (UA) NEGATIVE Urine Ketones NEGATIVE Urine Occult Blood LARGE H Urine Nitrite POSITIVE H Urine Bilirubin NEGATIVE Urine Urobilinogen 1 (NORMAL) Ur Leukocyte Esterase MODERATE H Urine RBC TNTC H Urine WBC >25 H Ur Squamous Epith Cells RARE Squamous Urine Bacteria Many H Ur Microscopic Review INDICATED Urine Culture Comments INDICATED PD MEDICAL DECISION MAKING - ED course Complexity details: reviewed old records, reviewed results, re-evaluated patient, considered differential, d/w patient, d/w art sales consultant ED course: Patient chronically unwell appearing, suspected UTI with hematuria. Patient appears pale but hemodynamically stable. Labs ordered. Patient has hx of hysterectomy from previous diagnosis of uterine CA. Hgb 10, stable for patient. Patient has UTI, will reach out to urology given patient's history of stent placement for recommendations. Dr. Oakley of [facility] reviewed patient's case, patient had recent urine culture of klebsiella sensitive to fluoroquinolones, cephalosporins, only resistant to bactrim and nitrofurantoin. Patient has chronic bleeding from even prior to her stent placement. Dr. Oakley recommended switching to cipro since patient failed keflex previously. Patient is hemodynamically stable, not septic. Shared decision making had with the patient, she states she prefers to go home at this time and will follow up with her urology clinic. Will give dose of cipro here and will discharge with PO antibiotics. Close urology followup advised. Patient requested medications for pain as her periurethral area is very irritated. Discharged with Pyridium as well as very short course of analgesic medications. Patient counseled on the potentially sedating nature of this medication and advised caution when taking it and it's increase of fall risks. Patient expressed understanding. - Consults Consults: Consulted (name), Discussed case with (Urology), Other Departure - Departure Disposition: 01 Home, Self Care Clinical Impression: UTI (urinary tract infection) Qualifiers: Urinary tract infection type: acute cystitis Hematuria presence: with hematuria Qualified Code(s): N30.01 - Acute cystitis with hematuria Condition: Good Instructions: ED Infec Bladder Female Ch Prescriptions: Ciprofloxacin HCl [Cipro] 500 mg PO BID #20 tablet oxyCODONE/ACET 5/325 [Percocet 5 mg/325 mg] 1 each PO Q4-6H PRN #5 tablet PRN Reason: breakthrough acute pain Phenazopyridine HCl [Pyridium] 200 mg PO TID PRN #15 tablet PRN Reason: dysuria Discharge Date/Time: 08/29/21 18:57
[2021-08-29] MEDS ORDERED: cefTRIAXone 1 GM in SODIUM CHLORIDE 0.9% MINIBAG 100 ML IV STA (14:28)
[2021-08-29 14:52] LABS: BASOPHILS # (AUTO) 0.1 10^3/uL (0.0-0.1); BASOPHILS % (AUTO) 0.9 %; EOSINOPHILS # (AUTO) 0.2 10^3/uL (0.0-0.7); EOSINOPHILS % (AUTO) 2.7 %; HCT - HEMATOCRIT 33.9 % (37.0-47.0); HGB - HEMOGLOBIN 10.4 g/dL (12.0-16.0); LYMPHOCYTES # (AUTO) 1.2 10^3/uL (1.5-3.5); LYMPHOCYTES % (AUTO) 19.4 %; MEAN CORPUSCULAR HEMOGLOBIN 24.5 pg (27.0-31.0); MEAN CORPUSCULAR HGB CONC 30.7 g/dL (32.0-36.0); MEAN CORPUSCULAR VOLUME 79.8 fL (81.0-99.0); MEAN PLATELET VOLUME 11.8 fL (7.9-10.8); MONOCYTES # (AUTO) 0.6 10^3/uL (0.0-1.0); MONOCYTES % (AUTO) 9.4 %; NEUTROPHILS # (AUTO) 4.3 10^3/uL (1.5-6.6); NEUTROPHILS % (AUTO) 67.3 %; PLT - PLATELET COUNT 218 10^3/uL (130-450); RED BLOOD COUNT 4.25 10^6/uL (4.20-5.40); RED CELL DISTRIBUTION WIDTH 14.5 % (12.0-15.0); WHITE BLOOD COUNT 6.4 x10^3/uL (4.8-10.8)
[2021-08-29 14:56] LABS: INR 3.1 (0.8-1.2); PT - PROTHROMBIN TIME 34.8 secs (9.9-12.6)
[2021-08-29 15:03] LABS: ALKALINE PHOSPHATASE 121 IU/L (42-121); ALT ALANINE AMINOTRANSFERASE < 10 IU/L (10-60); AST ASPARTATE AMINOTRANSFERASE 16 IU/L (10-42); BUN - BLOOD UREA NITROGEN 19 mg/dL (6-20); CALCIUM 8.5 mg/dL (8.5-10.3); CARBON DIOXIDE - CO2 26 mmol/L (21-32); CHLORIDE 106 mmol/L (101-111); CK- CREATINE KINASE 18 IU/L (22-269); CREATININE 1.3 mg/dL (0.4-1.0); GFR - MDRD 39 (>89); GLUCOSE 124 mg/dL (70-100); POTASSIUM 3.9 mmol/L (3.5-5.0); SODIUM 140 mmol/L (135-145); TOTAL PROTEIN 6.1 g/dL (6.7-8.2)
[2021-08-29 16:41] LABS: GLUCOSE, URINE (UA) NEGATIVE (NEGATIVE); KETONES,URINE (UA) NEGATIVE (NEGATIVE); LEUKOCYTE ESTERASE, URINE MODERATE (NEGATIVE); NITRITE,URINE POSITIVE (NEGATIVE); OCCULT BLOOD,URINE LARGE (NEGATIVE); PH,URINE 6.5 PH (5.0-7.5); PROTEIN,URINE >=300 mg/dL (NEGATIVE); UROBILINOGEN,URINE 1 (NORMAL) E.U./dL (NORMAL)
[2021-08-29 16:51] LABS: BILIRUBIN,URINE NEGATIVE (NEGATIVE); CLARITY,URINE BLOODY (CLEAR); ICTOTEST,URINE NEGATIVE
[2021-08-29 16:52] LABS: BACTERIA,URINE Many /HPF (None Seen); RBC,URINE TNTC /HPF (0-5); SQUAMOUS EPITHELIAL CELL,UR RARE Squamous (<= Few); WBC,URINE >25 /HPF (0-5)
[2021-08-29] MEDS ORDERED: CIPROFLOXACIN 400 MG/200 ML 400 MG/200 ML BAG IV SCH (18:00)
[2021-08-29 18:18] VITALS: BP 148/61
== END 2021-08-29 18:57 | disposition home or self-care (01) ==
LOC: EDUNIT# → ED 14:15
DX: N30.01 Acute cystitis with hematuria (principal); Z87.891 Personal history of nicotine dependence
CPT/HCPCS: 36415; 80053; 81001; 81003; 82550; 83605; 84484; 85025; 85610; 87040; 87077; 87086; 87181; 93005; 96365; 96367; 99283

== ENCOUNTER 2021-09-08 13:00 | Outpatient (CLI) | payer MEDICARE, OTHER ==
[2021-09-08 13:22] LABS: BASOPHILS # (AUTO) 0.1 10^3/uL (0.0-0.1); BASOPHILS % (AUTO) 0.9 %; EOSINOPHILS # (AUTO) 0.2 10^3/uL (0.0-0.7); EOSINOPHILS % (AUTO) 1.8 %; HCT - HEMATOCRIT 36.4 % (37.0-47.0); HGB - HEMOGLOBIN 10.9 g/dL (12.0-16.0); LYMPHOCYTES # (AUTO) 1.4 10^3/uL (1.5-3.5); LYMPHOCYTES % (AUTO) 15.4 %; MEAN CORPUSCULAR HGB CONC 29.9 g/dL (32.0-36.0); MEAN PLATELET VOLUME 12.8 fL (7.9-10.8); MONOCYTES # (AUTO) 0.8 10^3/uL (0.0-1.0); MONOCYTES % (AUTO) 8.8 %; NEUTROPHILS # (AUTO) 6.4 10^3/uL (1.5-6.6); NEUTROPHILS % (AUTO) 72.6 %; PLT - PLATELET COUNT 295 10^3/uL (130-450); RED BLOOD COUNT 4.73 10^6/uL (4.20-5.40); RED CELL DISTRIBUTION WIDTH 14.9 % (12.0-15.0); WHITE BLOOD COUNT 8.8 x10^3/uL (4.8-10.8)
[2021-09-08 13:37] LABS: ALBUMIN 3.7 g/dL (3.2-5.5); ALBUMIN/GLOBULIN RATIO 1.1 (1.0-2.2); BILIRUBIN,TOTAL 0.8 mg/dL (0.2-1.0); CREATININE 1.5 mg/dL (0.4-1.0); POTASSIUM 3.5 mmol/L (3.5-5.0); TOTAL PROTEIN 7.2 g/dL (6.7-8.2)
--- NOTE | 2021-09-11 06:00 | XRAY Report ---
PROCEDURE: Chest 2 View X-Ray INDICATIONS: DYSPNEA ON EXERTION TECHNIQUE: 2 view(s) of the chest. COMPARISON: None. FINDINGS: Surgical changes and devices: None. Lungs and pleura: No pleural effusions or pneumothorax. Lungs are clear. Mediastinum: Mediastinal contours are normal. Heart size is normal. Bones and chest wall: No suspicious bony abnormalities. Soft tissues appear unremarkable. IMPRESSION: No acute pulmonary process. Reviewed by: Ewa Estrada MD on 09/08/2021 2:24 PM PDT Approved by: Ewa Estrada MD on 09/08/2021 2:24 PM PDT Station ID: [id number]
== END 2021-09-08 13:01 | disposition home or self-care (01) ==
LOC: DI 13:00
PROVIDERS: ATTEND Internal Medicine
DX: R06.09 Other forms of dyspnea (principal); I50.20 Unspecified systolic (congestive) heart failure
CPT/HCPCS: 36415; 80053; 83880; 85025; 85379

== ENCOUNTER 2021-09-09 12:11 | Outpatient (CLI) | payer MEDICARE, OTHER ==
[2021-09-09 19:18] LABS: GLUCOSE, URINE (UA) NEGATIVE (NEGATIVE); KETONES,URINE (UA) NEGATIVE (NEGATIVE); LEUKOCYTE ESTERASE, URINE MODERATE (NEGATIVE); NITRITE,URINE POSITIVE (NEGATIVE); OCCULT BLOOD,URINE LARGE (NEGATIVE); PROTEIN,URINE >=300 mg/dL (NEGATIVE); UROBILINOGEN,URINE 0.2 (NORMAL) E.U./dL (NORMAL)
[2021-09-09 19:21] LABS: BILIRUBIN,URINE NEGATIVE (NEGATIVE); CLARITY,URINE BLOODY (CLEAR); ICTOTEST,URINE NEGATIVE
[2021-09-09 19:25] LABS: BACTERIA,URINE Moderate /HPF (None Seen); RBC,URINE TNTC /HPF (0-5); SQUAMOUS EPITHELIAL CELL,UR NONE SEEN (<= Few)
== END 2021-09-09 12:12 | disposition home or self-care (01) ==
LOC: LAB.N 12:11
PROVIDERS: ATTEND Internal Medicine
DX: N30.90 Cystitis, unspecified without hematuria (principal)
CPT/HCPCS: 36415; 80053; 81001; 81003; 83880; 85025; 85379; 87086

== ENCOUNTER 2021-11-20 09:41 | Outpatient (CLI) | payer MEDICARE, OTHER ==
[2021-11-20] MEDS ORDERED: DIATRIZOATE MEGLU/DIATRIZO SOD 30 ML BOTTLE PO ONE (10:11)
[2021-11-20] MEDS ORDERED: iohexoL-300 100 ML VIAL ONE (10:11)
[2021-11-20 10:26] LABS: CREATININE 1.2 mg/dL (0.4-1.0)
[2021-11-20] MEDS ORDERED: iohexoL-300 100 ML VIAL IVP ONE (12:43)
--- NOTE | 2021-11-20 14:02 | CT Report ---
PROCEDURE: CT Abdomen/Pelvis With contrast INDICATIONS: Hydronephrosis CONTRAST: IV CONTRAST: Optiray 320 ml: 100 PO CONTRAST: *NO PO CONTRAST TECHNIQUE: After the administration of intravenous contrast, 5 mm thick sections acquired from the diaphragms to the symphysis. 5 mm thick coronal and sagittal reformats were acquired. For radiation dose reducti on, the following was used: automated exposure control, adjustment of mA and/or kV according to hair ent size. COMPARISON: CT chest abdomen pelvis 06/26/2021. FINDINGS: Image quality: Excellent. Images are denoted as (series #/image #). Visualized lung bases: No pleural effusion. Liver and biliary tree: No suspect focal hepatic lesion. No biliary ductal dilation. Gallbladder: Surgically absent. Spleen: Unremarkable. Pancreas: Atrophic in appearance. No main ductal dilation. Adrenal glands: Unremarkable. Kidneys and ureters: The left kidney appears atrophic as before. A left ureteral stent is present wit h the upper end at the renal pelvis/proximal ureter and the inferior end at the urinary bladder. Pers istent urothelial thickening and enhancement of the left renal pelvis. No hydronephrosis bilaterally. Gastrointestinal tract: Prior gastric bypass. No evidence of mechanical bowel obstruction. Peritoneal cavity: No free air or free fluid. Bladder: Unremarkable. Pelvic organs: The uterus is not visualized and is presumed surgically absent. Vasculature: No abdominal aortic aneurysm. Musculoskeletal: Degenerative change of the spine. IMPRESSION: Resolution of left hydronephrosis status post placement of a left ureteral stent. There is persistent nonspecific urothelial thickening and enhancement of the left renal pelvis which could indicate infe ction/inflammation or reactive change. An upper tract urothelial neoplasm is not excludable. Reviewed by: Cecil Gonzales MD on 11/20/2021 2:01 PM PDT Approved by: Cecil Gonzales MD on 11/20/2021 2:01 PM PDT Station ID: [id number]
== END 2021-11-20 09:42 | disposition home or self-care (01) ==
LOC: LAB 09:41
PROVIDERS: ATTEND Urology
DX: R93.41 Abnormal radiologic findings on diagnostic imaging of renal pelvis, ureter, or bladder (principal); Z96.0 Presence of urogenital implants
CPT/HCPCS: 36415; 74177; 82565; Q9967

== ENCOUNTER 2021-12-06 22:34 | Outpatient (CLI) | payer MEDICARE, OTHER | END 2021-12-06 22:35 | disposition critical access hospital (66) | LOC: EMS 22:34 | DX: S00.83XA Contusion of other part of head, initial encounter (principal); R68.84 Jaw pain; M79.632 Pain in left forearm; M25.532 Pain in left wrist; W07.XXXA Fall from chair, initial encounter; W22.8XXA Striking against or struck by other objects, initial encounter; Y92.000 Kitchen of unspecified non-institutional (private) residence as the place of occurrence of the external cause | CPT/HCPCS: A0425; A0427 ==

== ENCOUNTER 2021-12-06 22:55 | Emergency (ER) | payer MEDICARE, OTHER ==
--- NOTE | 2021-12-06 23:15 | ED Physician Documentation ---
PD HPI Fall - Stated complaint Stated Complaint: GLF/HEAD INJ - Chief complaint Chief Complaint: Trauma Ext - History obtained from History obtained from: Patient - History of Present Illness Mechanism of injury: Lost balance Fall distance: Standing position Where injury occurred: Home Timing - onset: Enter time (21:40), Today Injury(ies) location: Head, Face, Left Uppper Extremity Pain level now: 8 Quality of pain: Pain Associated symptoms: No: LOC, AMS, Amnesia, Neck pain, Weakness Symptoms improve with: Rest Worsens with: Movement, Palpation Contributing factors: Anticoagulated. No: Intoxicated Similar symptoms before: Has not had sx before Recently seen: Not recently seen - Additional information Additional information: patient was ambulating in her kitchen tonight using her walker when, at approximately 9:40 PM, she lost her balance and fell to ground, struck head/face against countertop. Denies LOC, denies neck pain. She recalls the entire event. Her chief complaint is left wrist pain. Also c/o left knee painShe Her medications include plavix and xarelto (for atrial fibrillation). Review of Systems Eyes: denies: Loss of vision, Decreased vision Cardiac: reports: Reviewed and negative Respiratory: reports: Reviewed and negative GI: reports: Reviewed and negative Musculoskeletal: reports: Joint pain (left wrist, left knee), Joint swelling (left wrist). denies: Neck pain, Back pain Neurologic: reports: Head injury. denies: Generalized weakness, Focal weakness, Numbness, Confused, Altered mental status, Headache, LOC PD PAST MEDICAL HISTORY - Past Medical History Cardiovascular: Hypertension, Murmur, Other Respiratory: Shortness of breath, Sleep apnea, Other Neuro: Peripheral neuropathy, Other Endocrine/Autoimmune: Type 2 diabetes, Other GI: Hepatitis, Other CHOKE SETTER: Uterine cancer (leiomyosarcoma since 04/2018), Other () : None HEENT: Other Psych: Claustrophobia Musculoskeletal: Osteoarthritis, Chronic back pain Derm: Psoriasis - Past Surgical History Past Surgical History: Yes General: Cholecystectomy, Gastric surgery, Colonoscopy Ortho: Arthroscopic surgery /CHOKE SETTER: Hysterectomy HEENT: Cataracts - Present Medications Home Medications: Ambulatory Orders Medication Instructions Recorded Confirmed Atorvastatin [Lipitor] 20 mg PO DAILY 12/07/21 12/07/21 Cholecalciferol [Vitamin D3] 1 cap PO DAILY 12/07/21 12/07/21 Clopidogrel [Plavix] 75 mg PO DAILY 12/07/21 12/07/21 Cyanocobalamin (Vitamin B-12) 0.5 tab PO DAILY 12/07/21 12/07/21 [Vitamin B12] Omeprazole Magnesium 20 mg PO DAILY 12/07/21 12/07/21 Oxybutynin [Ditropan] 5 mg PO DAILY 12/07/21 12/07/21 Rivaroxaban [Xarelto] 20 mg PO DAILY 12/07/21 12/07/21 Torsemide 10 mg PO 12/07/21 Verapamil HCl [Verelan Pm] 100 mg PO DAILY 12/07/21 12/07/21 oxyCODONE [Roxicodone] 5 - 10 mg PO Q6H PRN #20 tablet 12/07/21 - Allergies Allergies/Adverse Reactions: Allergies Allergy/AdvReac Type Severity Reaction Status Date / Time erythromycin base Allergy Emesis Verified 12/06/21 23:10 Penicillins Allergy Hives Verified 12/06/21 23:10 Tetracyclines Allergy Emesis Verified 12/06/21 23:10 - Social History Does the pt smoke?: No Smoking Status: Former smoker Does the pt drink ETOH?: No Does the pt have substance abuse?: No - Immunizations Immunizations are current?: Yes - POLST Patient has POLST: No POLST Status: Full Code PD ED PE NORMAL - Vitals Vital signs reviewed: Yes - General General: Alert and oriented X 3, No acute distress, Well developed/nourished - HEENT HEENT: PERRL, EOMI - Respiratory Respiratory: No respiratory distress, Clear bilaterally - Abdomen Abdomen: Soft, Non tender, Non distended - Back Back: No spinal TTP - Neuro Neuro: Alert and oriented X 3, Normal speech Eye Opening: Spontaneous Motor: Obeys Commands Verbal: Oriented GCS Score: 15 PD ED PE EXPANDED - HEENT HEENT: Other (echymosis , swelling to midline of mandible, left infraorbit. no bony facial/mandibular tenderness) - Cardiac Cardiac: Irregularly irregular, Murmur Present (3/6 MAGI LSB) - Extremities Extremities: Tenderness, Limited ROM, Swelling, Left wrist, Other (mild left knee swelling, mild TTP left knee anteriorly but good ROM left knee) PARTHA UE/Hands Visual: 1 - bruising, swelling, tenderness 2 - bruising, swelling, tenderness Results - Vitals Vitals: Vital Signs - 24 hr 12/06/21 12/06/21 12/07/21 23:00 23:30 00:14 Temperature 36.2 C L Heart Rate 81 79 78 Respiratory 13 18 17 Rate Blood Pressure 113/67 112/68 O2 Saturation 100 100 100 If not protocol : Oxygen Flow, liters/minute 12/07/21 12/07/21 12/07/21 01:00 01:30 02:00 Temperature Heart Rate 90 82 85 Respiratory 18 16 18 Rate Blood Pressure 115/69 124/69 111/70 O2 Saturation 100 94 94 If not protocol : Oxygen Flow, liters/minute 12/07/21 12/07/21 12/07/21 03:11 03:30 04:14 Temperature 36.1 C L Heart Rate 82 79 84 Respiratory 19 23 17 Rate Blood Pressure 121/58 L 121/58 L 116/56 L O2 Saturation 93 95 95 If not protocol : Oxygen Flow, liters/minute 12/07/21 12/07/21 12/07/21 05:23 06:25 06:30 Temperature 37.0 C Heart Rate 78 78 84 Respiratory 17 12 18 Rate Blood Pressure 115/55 L 114/56 L 115/58 L O2 Saturation 100 100 100 If not protocol : Oxygen Flow, liters/minute 12/07/21 12/07/21 12/07/21 07:21 07:22 07:51 Temperature Heart Rate 78 82 Respiratory 12 22 Rate Blood Pressure 108/51 L 114/58 L O2 Saturation 85 L 100 100 If not protocol 3 : Oxygen Flow, liters/minute 12/07/21 12/07/21 09:33 11:07 Temperature Heart Rate 65 73 Respiratory 8 L 10 L Rate Blood Pressure 111/57 L 120/57 L O2 Saturation 100 99 If not protocol 3 : Oxygen Flow, liters/minute Oxygen O2 Source Room air - EKG (time done) No standard instances Rate: Rate (enter#) (78) Rhythm: Atrial fibrillation Intervals: LBBB Compare to prior EKG: Unchanged from prior EKG (both the atrial fibrillation and LBBB noted on previous EKGs) - Labs Labs: Laboratory Tests 12/07/21 12/07/21 00:02 00:02 WBC 12.7 H RBC 4.49 Hgb 8.0 L Hct 29.9 L MCV 66.6 L MCH 17.8 L MCHC 26.8 L RDW 18.5 H Plt Count 291 MPV TNP Neut # (Auto) 10.0 H Lymph # (Auto) 1.5 O'Brien # (Auto) 0.9 Eos # (Auto) 0.1 Baso # (Auto) 0.1 Absolute Nucleated RBC 0.00 Nucleated RBC % 0.0 Manual Slide Review Indicated WBC Morphology NORMAL APPEARANCE Platelet Estimate NORMAL (130-450,000) Platelet Morphology 1+ LARGE PLATELETS RBC Morph Micro Appear 1+ OVALOCYTES Sodium 135 Potassium 3.5 Chloride 98 L Carbon Dioxide 24 Anion Gap 13.0 BUN 22 H Creatinine 1.3 H Estimated GFR (MDRD) 39 L Glucose 140 H Calcium 8.6 Total Bilirubin 0.9 AST 17 ALT 12 Alkaline Phosphatase 114 Total Protein 6.8 Albumin 3.2 Globulin 3.6 Albumin/Globulin Ratio 0.9 L Lipase 21 L - Rads (name of study) CT cervical spine Radiology: Prelim report reviewed, See rad report CTH Radiology: Prelim report reviewed, See rad report CT chest with IV contrast Radiology: Prelim report reviewed, See rad report CT A/P with IV contrast Radiology: Prelim report reviewed, See rad report left wrist xrays Radiology: Prelim report reviewed, See rad report left hip xrays with AP pelvis Radiology: Prelim report reviewed, See rad report PD MEDICAL DECISION MAKING - ED course Complexity details: reviewed old records, reviewed results, re-evaluated patient, considered differential, d/w patient ED course: CTH and neck are without acute/concerning findings (including no evidence of ICH). Left wrist xrays demonstrate mildly impacted fracture of the distal radius. Radiologist's interpretation also notes curvilnear lucency suspicious for a nondisplaced scaphoid waist fracture. Given the swelling and tenderness along the mid/distal fifth metacarpal on exam, I suspect there is also a nondisplaced fracture of left fifth metacarpal head. A sugar-tong splint is placed on LUE to DIP joints. She is given aliquots of IV morphine as well as one dose of IV dilaudid for ongoing left wrist pain. There are no concerning findings on CT chest and CT A/P. Results d/w patient. she has a caregiver that will come to ED later today. SW is consulted to assist with d/c plan. Departure - Departure Clinical Impression: Anemia, Left wrist fracture, Fracture of scaphoid of left wrist, Facial contusion Condition: Good Instructions: ED Head Injury Closed Sleep Mon, ED Fx Wrist Navicular Poss, ED Sling, ED Splint Care Fiberglass Follow-Up: Tuan Paredes MD [Provider Admit Priv/Credential] - Stephen Rahman MD [Primary Care Provider] - Prescriptions: oxyCODONE [Roxicodone] 5 - 10 mg PO Q6H PRN #20 tablet PRN Reason: Pain Comments: You have a fracture of the left wrist for which the splint was placed. The xrays are also suspicious for a fracture of one of the bones of the hand (scaphoid). You will need to keep the splint in place and follow up with an orthopedic surgeon within a week for reevaluation of these injuries. You were also found on blood tests to be anemic; your red blood cell levels are quite low, but at this time you do not need specific treatment for this (such as transfusion). You should follow up with your primary care provider this week for reevaluation
[2021-12-06] MEDS ORDERED: LORazepam 2 MG/ML VIAL IVP STA (23:31)
[2021-12-06] MEDS ORDERED: MORPHINE 2 MG/ML CARPUJECT IVP STA (23:32)
[2021-12-07 00:35] LABS: BASOPHILS # (AUTO) 0.1 10^3/uL (0.0-0.1); BASOPHILS % (AUTO) 0.9 %; EOSINOPHILS # (AUTO) 0.1 10^3/uL (0.0-0.7); EOSINOPHILS % (AUTO) 0.6 %; HCT - HEMATOCRIT 29.9 % (37.0-47.0); LYMPHOCYTES # (AUTO) 1.5 10^3/uL (1.5-3.5); MEAN CORPUSCULAR HEMOGLOBIN 17.8 pg (27.0-31.0); MEAN CORPUSCULAR HGB CONC 26.8 g/dL (32.0-36.0); MEAN CORPUSCULAR VOLUME 66.6 fL (81.0-99.0); MONOCYTES # (AUTO) 0.9 10^3/uL (0.0-1.0); MONOCYTES % (AUTO) 7.2 %; NEUTROPHILS % (AUTO) 78.8 %; PLT - PLATELET COUNT 291 10^3/uL (130-450); RED BLOOD COUNT 4.49 10^6/uL (4.20-5.40); RED CELL DISTRIBUTION WIDTH 18.5 % (12.0-15.0); WHITE BLOOD COUNT 12.7 x10^3/uL (4.8-10.8)
[2021-12-07 00:36] LABS: SLIDE REVIEW? Indicated
[2021-12-07 00:50] LABS: ALBUMIN 3.2 g/dL (3.2-5.5); ALBUMIN/GLOBULIN RATIO 0.9 (1.0-2.2); BILIRUBIN,TOTAL 0.9 mg/dL (0.2-1.0); CALCIUM 8.6 mg/dL (8.5-10.3); CREATININE 1.3 mg/dL (0.4-1.0); POTASSIUM 3.5 mmol/L (3.5-5.0); TOTAL PROTEIN 6.8 g/dL (6.7-8.2)
[2021-12-07 00:51] LABS: PLATELET ESTIMATE, MANUAL NORMAL (130-450,000) (NORMAL); PLATELET MORPHOLOGY 1+ LARGE PLATELETS (NORMAL); WBC MORPHOLOGY (MULTIPLE) NORMAL APPEARANCE (NORMAL)
--- NOTE | 2021-12-07 00:53 | CT Report ---
PROCEDURE: HEAD WO INDICATIONS: fall, head injury, on anticoagulants TECHNIQUE: Noncontrast 4.5 mm thick angled axial sections acquired from the foramen magnum to the vertex. For r adiation dose reduction, the following was used: automated exposure control, adjustment of mA and/or kV according to patient size. COMPARISON: None. FINDINGS: Image quality: Excellent. CSF spaces: Basal cisterns are patent. No extra-axial fluid collections. Ventricles are normal in size and shape. Brain: No intracranial hemorrhage, mass, or mass effect. Nelson-white matter interface appears preser gamal. Skull and face: There is mild soft tissue swelling of the frontal scalp region. Calvarium and visua lized facial bones are intact, without suspicious lesions. Sinuses: Visualized sinuses and mastoids are clear. IMPRESSION: 1. No acute intracranial abnormality. 2. Mild left frontal scalp soft tissue swelling. No associated fractures identified. Reviewed by: Dominik Gómez MD on 12/07/2021 12:51 AM PDT Approved by: Dominik Gómez MD on 12/07/2021 12:51 AM PDT Station ID: [id number]
[2021-12-07] MEDS ORDERED: iohexoL-300 100 ML VIAL ONE (00:55)
--- NOTE | 2021-12-07 00:55 | CT Report ---
PROCEDURE: CERVICAL SPINE WO INDICATIONS: fall, head injury TECHNIQUE: Noncontrast 3 mm thick sections acquired from the skull base to the T4 level. Sagittal and coronal r eformats were then constructed. For radiation dose reduction, the following was used: automated exp osure control, adjustment of mA and/or kV according to patient size. COMPARISON: None. FINDINGS: Image quality: Excellent. Bones: No fractures or subluxation. There is minimal anterolisthesis at C2-3, C3-C4, and C4-C5. Visu alized superior ribs are intact. Soft tissues: Prevertebral soft tissues are normal in thickness. No paravertebral hematomas. No ap ical pneumothoraces. IMPRESSION: 1. No acute fracture or subluxation. Reviewed by: Dominik Gómez MD on 12/07/2021 12:54 AM PDT Approved by: Dominik Gómez MD on 12/07/2021 12:54 AM PDT Station ID: [id number]
[2021-12-07] MEDS ORDERED: SODIUM CHLORIDE 0.9% 500 ML IV STA (01:17)
--- NOTE | 2021-12-07 01:23 | XRAY Report ---
PROCEDURE: Hip w/Pelvis 2-3V LT INDICATIONS: fall, left hip pain TECHNIQUE: AP pelvis with lateral left hip. COMPARISON: None. FINDINGS: Bones: Evaluation is markedly limited due to suboptimal positioning of the patient on trauma board on the AP projection as well as limited visualization on the crosstable lateral view due to body habitu s. A left femoral neck fracture cannot be excluded. The visualized bony pelvis appears intact. No def inite right hip fracture or dislocation. Soft tissues: The visualized bowel gas pattern is normal. No suspicious soft tissue calcifications. There is a partially visualized left ureteral stent with the distal coil projecting over the bladder . IMPRESSION: 1. Markedly limited study with nondiagnostic evaluation of the left hip. If there is persistent clini emelyn suspicion for left hip fracture, recommend repeat images when clinically feasible. Reviewed by: Dominik Gómez MD on 12/07/2021 1:21 AM PDT Approved by: Dominik Gómez MD on 12/07/2021 1:21 AM PDT Station ID: [id number]
--- NOTE | 2021-12-07 01:25 | XRAY Report ---
PROCEDURE: Wrist 3 View LT INDICATIONS: fall, left wrist pain TECHNIQUE: 4 views of the wrist were acquired. COMPARISON: None. FINDINGS: Bones: There is a mildly impacted transverse fracture in the distal radial metadiaphysis. Visualized osseous structures appear osteopenic. No suspicious bony lesions. Scaphoid view: There is a curvilinear lucency projecting over the scaphoid waist. A nondisplaced fra cture cannot be excluded. Soft tissues: No suspicious soft tissue calcifications. IMPRESSION: 1. Mildly impacted fracture of the distal radius. 2. Curvilinear lucency suspicious for a nondisplaced scaphoid waist fracture. Reviewed by: Dominik Gómez MD on 12/07/2021 1:23 AM PDT Approved by: Dominik Gómez MD on 12/07/2021 1:23 AM PDT Station ID: [id number]
[2021-12-07] MEDS ORDERED: MORPHINE 2 MG/ML CARPUJECT IVP STA ×3 (01:52→04:11)
[2021-12-07] MEDS ORDERED: iohexoL-300 100 ML VIAL IVP ONE (03:55)
[2021-12-07] MEDS ORDERED: HYDROmorphone 1 MG/ML CARPUJECT IVP STA (05:49)
--- NOTE | 2021-12-07 08:36 | ED Physician Documentation ---
ED Addendum - Addendum Addendum: Subjective: Patient seen overnight for a ground-level fall. Has significant bruising to the face. Has Fractures to the left wrist and hand. Objective: Vital signs are stable, she is awake eating breakfast. Reports pain is currently adequately controlled. Assessment: Left distal radius fracture; Fall at home Plan: Patient has been seen by social work. She has been able to ambulate with assistance here. She will be discharged home as she has a caregiver and family members to help her. Departure - Departure Disposition: 01 Home, Self Care Clinical Impression: Anemia Qualifiers: Anemia type: unspecified type Qualified Code(s): D64.9 - Anemia, unspecified Left wrist fracture Qualifiers: Encounter type: initial encounter Fracture type: closed Qualified Code(s): S62.102A - Fracture of unspecified carpal bone, left wrist, initial encounter for closed fracture Fracture of scaphoid of left wrist Qualifiers: Encounter type: initial encounter Scaphoid bone location: unspecified portion of scaphoid Fracture type: closed Fracture alignment: nondisplaced Qualified Code(s): S62.002A - Unspecified fracture of navicular [scaphoid] bone of left wrist, initial encounter for closed fracture Facial contusion Qualifiers: Encounter type: initial encounter Qualified Code(s): S00.83XA - Contusion of other part of head, initial encounter Condition: Good Instructions: ED Head Injury Closed Sleep Mon, ED Fx Wrist Navicular Poss, ED Sling, ED Splint Care Fiberglass Follow-Up: Tuan Paredes MD [Provider Admit Priv/Credential] - Stephen Rahman MD [Primary Care Provider] - Prescriptions: oxyCODONE [Roxicodone] 5 - 10 mg PO Q6H PRN #20 tablet PRN Reason: Pain Comments: You have a fracture of the left wrist for which the splint was placed. The xrays are also suspicious for a fracture of one of the bones of the hand (scaphoid). You will need to keep the splint in place and follow up with an orthopedic surgeon within a week for reevaluation of these injuries. You were also found on blood tests to be anemic; your red blood cell levels are quite low, but at this time you do not need specific treatment for this (such as transfusion). You should follow up with your primary care provider this week for reevaluation Discharge Date/Time: 12/07/21 17:30
--- NOTE | 2021-12-07 08:40 | CT Report ---
PROCEDURE: ABDOMEN/PELVIS W INDICATIONS: trauma, fall , on blood thinners CONTRAST: Omni 300 100ml TECHNIQUE: After the administration of IV contrast, 5 mm thick sections acquired from the diaphragms to the symp hysis. 5 mm thick coronal and sagittal reformats were acquired. For radiation dose reduction, the f ollowing was used: automated exposure control, adjustment of mA and/or kV according to patient size. COMPARISON: CT dated 11/20/2021 FINDINGS: Image quality: Excellent. ABDOMEN: Lung bases: Lung bases are clear. Heart size is normal. There is calcification of the coronary vas cular tree. Solid organs: Liver and spleen are normal in size and enhancement. Gallbladder is surgically absent Biliary system is non dilated. Pancreas enhances normally. No adrenal nodules. Moderate left lamin al atrophy, as before. Kidneys demonstrate otherwise normal size and enhancement, without hydronephro sis. Left ureteral stent is present, as before. Peritoneum and bowel: Gastric bypass has been performed. Bowel loops demonstrate normal wall thicknes s and caliber. No free fluid or air. Normal appendix. Nodes and vessels: No retroperitoneal or mesenteric adenopathy by size criteria. Aorta and inferior vena cava are normal in size. Miscellaneous: No ventral hernias. PELVIS: Genitourinary: Bladder wall thickness is normal. Miscellaneous: No inguinal hernias or adenopathy. Bones: No suspicious bony lesions. No vertebral body compression fractures. IMPRESSION: 1. No acute process. 2. Coronary artery disease. 3. Concordant with preliminary interpretation. Reviewed by: Chitra Castrejon MD on 12/07/2021 8:39 AM PDT Approved by: Chitra Castrejon MD on 12/07/2021 8:39 AM PDT Station ID: [id number]
--- NOTE | 2021-12-07 10:20 | CT Report ---
PROCEDURE: CHEST W INDICATIONS: fall, multiple injuries, on xarelto CONTRAST:Omni 300 100ml TECHNIQUE: After the administration of intravenous contrast, 1 mm axial images were acquired from the pulmonary apices through the posterior costophrenic angles. Axial 5 mm soft tissue kernel reconstructions were performed as well as 8 mm axial MIP and coronal and sagittal 5 mm reformations. For radiation dose reduction, the following was used: automated exposure control, adjustment of mA and/or kV according to patient size. COMPARISON: None. FINDINGS: Image quality: Excellent. Lungs and pleura: No acute air space opacities. No pleural effusions or pneumothorax. Central and peripheral airways are patent and normal in caliber. Mediastinum: No mediastinal hematoma. Normal aorta without evidence of acute trauma. Heart size at t he upper limits of normal with moderate coronary artery and mild mitral annular calcification. No per icardial effusion. No substernal hematoma. Pulmonary arteries are normal caliber. No hilar or mediast inal adenopathy. Normal esophagus without hiatal hernia. Bones and chest wall: No suspicious bony lesions. No vertebral body compression fractures. No axil alyson or supraclavicular adenopathy by size criteria. The thyroid is normal in size and there are no incidental findings.. Abdomen: The visible upper abdomen demonstrates intact solid organs, cholecystectomy changes, gastri c bypass changes, and no macroscopic free air or free fluid. IMPRESSION: 1. No CT evidence of acute trauma to the chest. 2. Mild cardiomegaly with coronary artery calcification. 3. Final interpretation concordant with preliminary report. Reviewed by: Eileen Vidal MD on 12/07/2021 9:19 AM DEMETRICE Approved by: Eileen Vidal MD on 12/07/2021 9:19 AM DEMETRICE Station ID: [id number]
[2021-12-07] MEDS ORDERED: oxyCODONE 5 MG TABLET PO STA (10:57)
[2021-12-07] MEDS ORDERED: ONDANSETRON 4 MG/2 ML VIAL IVP STA (10:57)
[2021-12-07 15:08] VITALS: BP 111/61
== END 2021-12-07 17:30 | disposition home or self-care (01) ==
LOC: EDUNIT# → ED 22:55
DX: S00.83XA Contusion of other part of head, initial encounter (principal); S52.502A Unspecified fracture of the lower end of left radius, initial encounter for closed fracture; S62.002A Unspecified fracture of navicular [scaphoid] bone of left wrist, initial encounter for closed fracture; W18.30XA Fall on same level, unspecified, initial encounter; Y92.000 Kitchen of unspecified non-institutional (private) residence as the place of occurrence of the external cause; I10 Essential (primary) hypertension; E11.42 Type 2 diabetes mellitus with diabetic polyneuropathy; Z87.891 Personal history of nicotine dependence; I48.91 Unspecified atrial fibrillation; D64.9 Anemia, unspecified
CPT/HCPCS: 29125; 36415; 70450; 71260; 72125; 73110; 73502; 74177; 80053; 83690; 85025; 93005; 96374; 96375; 96376; 99284; 99285; A9270; J1170; Q9967

== ENCOUNTER 2021-12-12 08:00 | Outpatient (CLI) | payer MEDICARE, OTHER ==
--- NOTE | 2021-12-12 15:30 | XRAY Report ---
PROCEDURE: Wrist 4 View LT INDICATIONS: LEFT WRIST PAIN/INJURY TECHNIQUE: 4 views of the wrist were acquired. COMPARISON: 12/06/2021 FINDINGS: Bones: Similar appearance of impacted distal radius fracture. Scattered arthrosis at the STT and firs t CMC joint in particular. Possible mildly displaced fracture of the fifth metacarpal neck. No displaced fracture of the scaphoid identified. Lucent lesion again seen at the proximal lunate, possibly a cyst or geode. Soft tissues: No suspicious calcifications. IMPRESSION: Similar appearance of fifth metacarpal neck and distal radius fractures. No displaced fracture of the scaphoid. Consider MRI or CT to follow up the scaphoid if necessary. Reviewed by: Heath Peterson MD on 12/12/2021 3:29 PM PDT Approved by: Heath Peterson MD on 12/12/2021 3:29 PM PDT Station ID: [id number]
== END 2021-12-12 23:59 | disposition home or self-care (01) ==
LOC: DI.WOS 08:00
PROVIDERS: ATTEND Orthopaedic Surgery
DX: S52.502D Unspecified fracture of the lower end of left radius, subsequent encounter for closed fracture with routine healing (principal)

== ENCOUNTER 2021-12-26 18:40 | Outpatient (CLI) | payer MEDICARE, OTHER | END 2021-12-26 18:41 | disposition EMS.NT | LOC: EMS 18:40 | DX: Z03.89 Encounter for observation for other suspected diseases and conditions ruled out (principal); Z79.01 Long term (current) use of anticoagulants ==

== ENCOUNTER 2021-12-30 19:57 | Outpatient (CLI) | payer MEDICARE, OTHER | END 2021-12-30 19:58 | disposition EMS.NT | LOC: EMS 19:57 | DX: Z03.89 Encounter for observation for other suspected diseases and conditions ruled out (principal) ==

== ENCOUNTER 2022-01-02 14:44 | Outpatient (CLI) | payer MEDICARE, OTHER ==
--- NOTE | 2022-01-02 15:26 | XRAY Report ---
PROCEDURE: Wrist 3 View LT INDICATIONS: LEFT WRIST FRACTURE TECHNIQUE: 3 views of the wrist were acquired. COMPARISON: Left wrist radiographs 12/12/2021 FINDINGS: Bones: Redemonstrated fracture of the distal radius without substantial angulation of the distal fra gment. Alignment is similar to before. Increased sclerosis present about the fracture plane, possible progression of healing. Soft tissues: No suspicious soft tissue calcifications. IMPRESSION: Similar alignment of the distal radius fracture. Reviewed by: Cecil Gonzales MD on 01/02/2022 3:24 PM PST Approved by: Cecil Gonzales MD on 01/02/2022 3:24 PM PST Station ID: [id number]
--- NOTE | 2022-01-02 15:30 | XRAY Report ---
PROCEDURE: Hand 3 View LT INDICATIONS: LEFT HAND 5TH MC FRACTURE SEEN ON 12.12.21 WRIST X-RAY TECHNIQUE: 3 views of the hand(s) acquired. COMPARISON: Left wrist radiographs 12/12/2021 FINDINGS: Bones: The bones appear demineralized. Similar apex dorsal angulation of the distal fifth metacarpal suspicious for recent/subacute fracture. Alignment appears similar to before. Suggestion of periostea l new bone formation/progression of healing. Distal radius fracture is dictated separately. Soft tissues: No suspicious soft tissue calcifications. IMPRESSION: Similar alignment of the distal fifth metacarpal fracture. Reviewed by: Cecil Gonzales MD on 01/02/2022 3:29 PM PST Approved by: Cecil Gonzales MD on 01/02/2022 3:29 PM PST Station ID: [id number]
== END 2022-01-02 14:45 | disposition home or self-care (01) ==
LOC: DI.WOS 14:44
PROVIDERS: ATTEND Orthopaedic Surgery
DX: S52.532D Colles' fracture of left radius, subsequent encounter for closed fracture with routine healing (principal); S62.397D Other fracture of fifth metacarpal bone, left hand, subsequent encounter for fracture with routine healing

== ENCOUNTER 2022-01-23 14:18 | Outpatient (CLI) | payer MEDICARE, OTHER ==
--- NOTE | 2022-01-23 21:50 | XRAY Report ---
PROCEDURE: Wrist 3 View LT INDICATIONS: LEFT WRIST FRACTURE TECHNIQUE: 3 views of the wrist were acquired. COMPARISON: 01/02/2022 FINDINGS: Bones: There is interval healing at distal radial shaft impacted fracture site with increased scleros is. Overall wrist alignment is unchanged. Wrist joint osteoarthritic changes are again noted. No new fracture or dislocation. No suspicious bony lesions. Scaphoid view: Scaphoid is grossly intact. Soft tissues: No suspicious soft tissue calcifications. IMPRESSION: Interval further healing distal radial shaft impacted fracture site with stable wrist alignment. No n ew fracture or dislocation. Wrist joint osteoarthritis. Reviewed by: Jacques Mackay MD on 01/23/2022 9:49 PM PST Approved by: Jacques Mackay MD on 01/23/2022 9:49 PM PST Station ID: [id number]
== END 2022-01-23 14:19 | disposition home or self-care (01) ==
LOC: DI.WOS 14:18
PROVIDERS: ATTEND Orthopaedic Surgery
DX: S52.532D Colles' fracture of left radius, subsequent encounter for closed fracture with routine healing (principal); M19.032 Primary osteoarthritis, left wrist

== ENCOUNTER → 2022-01-23 | Outpatient (CLI) | payer MEDICARE, OTHER | END | disposition critical access hospital (66) | LOC: EMS 12:06 | DX: R53.1 Weakness (principal); R42 Dizziness and giddiness; R11.0 Nausea; I95.9 Hypotension, unspecified | CPT/HCPCS: A0425; A0427 ==